=== PATIENT | female | born 1945 | race Caucasian/White ===

== ENCOUNTER 2020-05-21 11:59 | Outpatient (CLI) | payer MEDICARE, BC, SELFPAY ==
--- NOTE | 2020-05-21 12:06 | DI.RAD_ITS ---
EXAM: XR HIP LT COMPLETE AP PELVIS CLINICAL HISTORY: L hip pain TECHNIQUE: COMPARISON: No exams were available for comparison FINDINGS: Three views were obtained. There is mild narrowing of the cartilaginous joint spaces of both hips. There are mild hypertrophic marginal osteophytes of the acetabula and femoral heads bilaterally. Mil d spurring of the greater trochanters of the femurs also noted. Degenerative changes of lower lumbar spine SI joints also noted. IMPRESSION: Mild DJD both hips. No other significant abnormality seen. RADIATION DOSE DELIVERED: Total DLP Total DLP
== END 2020-05-21 12:19 ==
PROVIDERS: Visit Provider Orthopaedic Surgery
DX: M16.0 Bilateral primary osteoarthritis of hip (principal); M70.62 Trochanteric bursitis, left hip
CPT/HCPCS: 99214; 73502

== ENCOUNTER → 2020-06-24 10:58 | Outpatient (BNVA) | payer MEDICARE, BC, SELFPAY | PROVIDERS: Visit Provider Student in an Organized Health Care Education/Training Program | DX: M25.552 Pain in left hip (principal); M70.72 Other bursitis of hip, left hip; M70.62 Trochanteric bursitis, left hip | CPT/HCPCS: 20610; J1040 ==

== ENCOUNTER 2020-11-25 11:25 | Emergency (ER) | payer MEDICARE, BC, SELFPAY ==
[2020-11-25 11:30] VITALS: BP 141/83; PULSE 72; RESP 16; TEMP 36.5; O2SAT 97
--- NOTE | 2020-11-25 12:07 | DI.RAD_ITS ---
Exam(s) XR ANKLE RT COMPLETE EXAM: XR ANKLE RT COMPLETE CLINICAL HISTORY: trauma, lateral ankle pain. TECHNIQUE: 2D digital imaging was performed. COMPARISON: No exams were available for comparison FINDINGS: There are 2 screws across a healed or healing medial malleolus fracture site. There is no overlying soft tissue swelling on either side of the ankle joint. There is no widening of the mortise. Talar dome is intact. Incidentally noted is moderate size inferior calcaneal spur as well as calcification in the plantar fascia a calcification posteriorly at the insertional level of the Achilles. Also no orquidea is dorsal talar beaking at the level of the talonavicular joint which exhibits significant degene rative change. There is no obvious osseous tarsal coalition. IMPRESSION: DATA REPOSITORY: RADIATION DOSE DELIVERED:
--- NOTE | 2020-11-25 12:09 | DI.RAD_ITS ---
Exam(s) XR FOOT RT COMPLETE EXAM: XR FOOT RT COMPLETE CLINICAL HISTORY: trauma, lateral foot pain. TECHNIQUE: 2D digital imaging was performed. COMPARISON: No exams were available for comparison FINDINGS: There is no evidence of acute fracture nor diastasis of the Lisfranc joint. Two screws are seen acro ss a healing medial malleolus fracture site. Fracture line at this level still seen on these images. Mild degenerative changes are seen at the metatarsophalangeal joint of the great toe. No fractures. Degenerative changes in the talonavicular joint are noted with dorsal talar beaking at this level. No obvious osseous tarsal coalition. IMPRESSION: DATA REPOSITORY: RADIATION DOSE DELIVERED:
--- NOTE | 2020-11-25 12:32 | ED.GENADUL_ITS ---
Discharge Plan Disposition Patient Disposition: HOME Condition: Stable Discharge Details Clinical Impression: Ankle injury Primary Care Provider: John Winkler ED Provider: Niyah Acharya Home Meds and New Rx's Prescriptions: Continued simvastatin 10 mg tablet 10 mg PO DAILY RF: 0 omeprazole 40 mg capsule,delayed release(DR/EC) 40 mg PO DAILY RF: 0 Discharge Instructions Instructions: Ankle Sprain (ED), Crutch Instructions (ED) Additional Instructions: Please return immediately to the emergency department if you develop any new or worsening symptoms, if your condition does not improve as expected, or if you become otherwise concerned. It is extremely important that you call soon as possible to make an appointment to be seen in follow-up for this visit by your primary care doctor. Referrals: John Winkler [Primary Care Provider] - Discharge Data Discharge Date/Time-TO BE ENTERED AT DEPARTURE: 11/25/20 12:58 Medical Decision Making Nevaeh Howard is a 75 y/o woman with h/o HLD who presented to the emergency department with right ankle and right lateral foot pain after mechanical fall. On exam there is TTP of the soft tissue of the right lateral ankle and of the right foot. No overlying skin changes or skin wound. ROM of knee, ankle, toes intact. Right foot neurovascularly intact. Concern for likely ankle sprain, possible fx of the ankle/foot. Exam/hx at this time not c/w maisonneuve fx, septic arthritis, vascular pathology, other acute emergent life threatening medical condition. Plan for xrays. xrays negative for acute process. Discussed plan for weight bearing as tolerated with Pt. Offered ankle brace, crutches. Pt declines ankle brace, but accepts crutches. Plans to use one crutch for balance as she is able to bear weight on affect ankle. I had a lengthy discussion with Patient regarding return to emerg ency department precautions, home care, and importance of outpatient follow-up. Pt verbalizes understanding of the plan and is amenable. Patient discharged to home with clear plan for outpatient follow-up. All questions were answered. Disposition decision was made weighing the risks and benefits of hospitalization versus outpatient treatment, the risk for further decompensation, and the patient's wishes. Medical Records Medical records reviewed: Yes I reviewed the patient's medical records. Imaging Data Radiologic Study: Attestation: I personally reviewed and interpreted this imaging study as follows: Radiologist's impression: EXAM: XR ANKLE RT COMPLETE CLINICAL HISTORY: trauma, lateral ankle pain. TECHNIQUE: 2D digital imaging was performed. COMPARISON: No exams were available for comparison FINDINGS: There are 2 screws across a healed or healing medial malleolus fracture site. There is no overlying soft tissue swelling on either side of the ankle joint. There is no widening of the mortise. Talar dome is intact. Incidentally noted is moderate size inferior calcaneal spur as well as calcification in the plantar fascia a calcification posteriorly at the insertional level of the Achilles. Also noted is dorsal talar beaking at the level of the talonavicular joint which exhibits significant degenerative change. There is no obvious osseous tarsal coalition. EXAM: XR FOOT RT COMPLETE CLINICAL HISTORY: trauma, lateral foot pain. TECHNIQUE: 2D digital imaging was performed. COMPARISON: No exams were available for comparison FINDINGS: There is no evidence of acute fracture nor diastasis of the Lisfranc joint. Two screws are seen across a healing medial malleolus fracture site. Fracture line at this level still seen on these images. Mild degenerative changes are seen at the metatarsophalangeal joint of the great toe. No fractures. Degenerative changes in the talonavicular joint are noted with dorsal talar beaking at this level. No obvious osseous tarsal coalition. HPI General Mode of arrival: ambulatory . Date/Time Provider Initiated Documentation: 11/25/20 11:44 . Limitations to Documentation: no limitations . Information obtained by: patient, RN notes reviewed and old records reviewed . HPI Narrative: Nevaeh Howard is a 75 y/o woman with h/o HLD presenting to the emergency department with chief complaint right ankle pain. Pt reports that at approximately 10 am this morning Pt was weeding in her garden when she pulled a particularly embedded weed, and fell backwards. Pt reports that she landed on her buttocks but rolled her right ankle as she was falling. She denies hitting her head, no LOC. Pt states that she was able to walk with a limpafter fall, but has had pain in the lateral right ankle and lateral right foot. She states that she has had prior surgery to the right ankle. She denies any other pain. Denies fever, SOB, cough, vomiting, diarrhea, weakness, numbness. Feels otherwise well and in her usual state of health. No symptoms prior to fall. Related Data Home Medications Medication Instructions Recorded Confirmed simvastatin 10 mg tablet 10 mg PO DAILY 05/21/20 11/25/20 omeprazole 40 mg PO DAILY 11/25/20 11/25/20 Allergies Allergy/AdvReac Type Severity Reaction Status Date / Time No Known Allergies Allergy Verified 11/25/20 11:47 General Stated Complaint: Orthopedic GINA: 4 Review of Systems Narrative: Constitutional: denies fevers Eyes: denies eye pain ENT: denies ear pain, dental pain, sore throat Cardiovascular: denies chest pain Respiratory: denies SOB, cough GI: denies abdominal pain, vomiting, diarrhea : denies flank pain MSK: denies back pain, neck pain, reports right ankle and right foot pain Skin: denies rash Neuro: denies headaches, numbness, weakness [facility] Social History Smoking/Tobacco Use Status: Never Smoking risk assessment performed?: Yes Alcohol Intake: current Alcohol Intake frequency: 0-2 drinks per day Alcohol type: wine Substance use type: does not use Current gender identity: female Do you feel safe at home: Yes Do you feel safe in your relationship?: Yes Exam Narrative Exam Narrative: Constitutional: well and [id number], pleasant, conversing normally HENT: head atraumatic/normocephalic/normal inspection, mucous membranes moist Eyes: conjunctiva normal, sclera normal, pupils 3mm b/l Neck: no stridor, normal ROM, trachea midline Resp: normal work of breathing, speaking in full sentences Cardio: normal rate, normal rhythm Skin: warm, dry, normal color, no rash Neuro: alert, not altered, grossly non-focal, normal tone Ext: no edema, right ankle mildly TTP over lateral soft tissue, no malleolar TTP, mild TTP along lateral aspect of right foot. Sensation of right foot intact. Foot WWP, DP pulses intact. Able to range right ankle normally but with pain. No proximal fibula TTP, no midshaft or proximal tibia TTP. Ranging right knee normally and without pain. Psych: normal mood, normal affect, normal behavior Course Vital Signs Vital signs: Vital Signs Temperature 36.5 C 11/25/20 11:30 Pulse 72 11/25/20 11:30 Respiratory Rate 16 11/25/20 11:30 Blood Pressure 141/83 H 11/25/20 11:30 Pulse Oximetry 97 11/25/20 11:30 Temperature 36.5 C 11/25/20 11:30 Temperature Source Skin 11/25/20 11:30 Pulse 72 11/25/20 11:30 Respiratory Rate 16 11/25/20 11:30 Blood Pressure 141/83 H 11/25/20 11:30 Blood Pressure Position Sitting 11/25/20 11:30 Pulse Oximetry 97 11/25/20 11:30 Oxygen Delivery Method Room Air 11/25/20 11:30 Oxygen Flow Rate 0 11/25/20 11:30 Pain Level 5 11/25/20 11:30 Comment 11/25/20 11:30
[2020-11-25 13:01] VITALS: BP 141/83; PULSE 72; RESP 16; TEMP 36.5; O2SAT 97
== END 2020-11-25 12:58 | disposition home or self-care (01) ==
PROVIDERS: Emergency Provider Student in an Organized Health Care Education/Training Program; PCP Physician Assistant
DX: S99.911A Unspecified injury of right ankle, initial encounter (principal); W19.XXXA Unspecified fall, initial encounter; X50.9XXA Other and unspecified overexertion or strenuous movements or postures, initial encounter
CPT/HCPCS: 99284; 73610; 73630; 99283

== ENCOUNTER 2020-12-19 19:11 | Outpatient (REF) | payer MEDICARE, BC, SELFPAY ==
[2020-12-19 20:10] LABS: ALT 27 U/L (14-59); AST 19 U/L (15-37); Albumin 3.7 g/dL (3.4-5.0); Alkaline Phosphatase 95 U/L (46-116); Anion Gap 11.5 mmol/L (3-11); BUN 27 mg/dL (7-18); CO2 25.5 mmol/L (21.0-32.0); CREATININE 0.8 mg/dL (0.55-1.02); Calcium 8.7 mg/dL (8.5-10.1); Calculated LDL 127 mg/dL (<100); Chloride 108 mmol/L (98-107); Cholesterol 196 mg/dL (<200); Glucose 102 mg/dL (74-106); HDL Cholesterol 51 mg/dL (40-60); Potassium 4.5 mmol/L (3.5-5.1); Sodium 145 mmol/L (136-145); Total Protein 6.9 g/dL (6.4-8.2); Triglyceride 92 mg/dL (<150)
== END 2020-12-19 19:12 | disposition home or self-care (01) ==
LOC: NCHCN 19:11
PROVIDERS: PCP Physician Assistant; Visit Provider Physician Assistant
DX: E78.5 Hyperlipidemia, unspecified (principal)
CPT/HCPCS: 80053; 80061

== ENCOUNTER 2021-04-17 15:54 | Emergency (ER) | payer MEDICARE, BC, SELFPAY ==
[2021-04-17 16:28] VITALS: BP 170/84; PULSE 73; RESP 16; TEMP 36.8; O2SAT 96
--- NOTE | 2021-04-17 17:08 | W.ED.GENAD ---
Discharge Plan Disposition Patient Disposition: HOME Condition: Stable Discharge Details Clinical Impression: Contusion of face, Abrasion of face, Contusion of left hip, Abrasion of left knee, Closed head injury with brief loss of consciousness Primary Care Provider: John Winkler ED Provider: Tiara Mancilla Home Meds and New Rx's Prescriptions: Continued simvastatin 10 mg tablet 10 mg PO DAILY RF: 0 omeprazole 40 mg capsule,delayed release(DR/EC) 40 mg PO DAILY RF: 0 montelukast 10 mg tablet 10 mg PO DAILY RF: 0 estradiol [Yuvafem] 10 mcg tablet 10 mcg VAGINAL RF: 0 Discharge Instructions Instructions: Head Injury (ED), Contusion in Adults (ED), Abrasion (ED) Additional Instructions: Drink plenty of fluids and get plenty of rest. Take Tylenol as needed and directed for pain. Keep wound clean and dry. Cover wound with bandage if risk of contamination. Otherwise you can keep the wound open to air if resting at home to allow edges to dry and heal. Follow-up with your primary care doctor in 1 week. Return to the emergency department with any worsening or new concerning symptoms such as persistent headaches, vomiting, neck pain or any other concerns. Discharge Data Discharge Date/Time-TO BE ENTERED AT DEPARTURE: 04/17/21 19:57 Discharge Physician: Tiara Mancilla Medical Decision Making 76-year-old female presents with right facial injury, left hip, left knee and right hand pain after mechanical fall prior to arrival. Denies any chest pain, dizziness or shortness of breath. Questionable LOC. She has right-sided facial abrasions, ecchymosis and edema but no obvious deformity or step-off. No midline spinal tenderness. She denies any current left hip or knee pain but had tenderness to palpation to her left knee. Considering potential distracting injuries, will obtain a CT head, facial bones, cervical spine, left hip and knee x-rays. Right hand appears normal to inspection without evidence of trauma with normal range of motion. She declines any medication for pain. Imaging reviewed and negative for acute fracture. Pt given a tetanus. Pt advised on proper wound care. She was given head injury instructions and return precautions prior to discharge. Advised to f/u with the pcp for re-evaluation as needed. Medical Records Medical records reviewed: Yes I reviewed the patient's medical records. Imaging Data Radiologic Study: Radiologist's impression: CT Head Without Contrast Exam date and time: 04/17/2021 5:29 PM Age: 76 years old Clinical indication: Injury or trauma; Fall; Blunt trauma (contusions or hematomas); Other: Hit R face on ground, R/O orbital/facial FX; Prior surgery TECHNIQUE: Imaging protocol: Computed tomography of the head without contrast. COMPARISON: No relevant prior studies available. FINDINGS: Brain: The ventricles and cortical sulci are normal in position and size for age. No hydrocephalus. No intracranial hemorrhage. No mass or midline shift. No extra-axial collections. Normal wallace-white differentiation. No large acute territorial infarct. No cerebral edema. Cerebral ventricles: See Brain finding. Paranasal sinuses: The visualized paranasal sinuses are well-aerated. There are no air fluid levels to suggest acute sinusitis. Mastoid air cells: The tympanomastoid air cells are normally aerated as visualized. Orbital cavity: [place] lenses are absent. The orbits are otherwise unremarkable as visualized. Vasculature: Intracranial arterial calcification is present. Bones/joints: No acute fracture. No focal osseous lesions. Soft tissues: RIGHT lateral periorbital soft tissue swelling. IMPRESSION: 1. No acute intracranial findings. 2. RIGHT lateral periorbital soft tissue swelling. CT Maxillofacial Without Contrast Exam date and time: 04/17/2021 5:29 PM Age: 76 years old Clinical indication: Injury or trauma; Fall; Blunt trauma (contusions or hematomas); Other: Hit R face on ground, R/O orbital/facial FX; Prior surgery TECHNIQUE: Imaging protocol: Computed tomography images of the face without contrast. COMPARISON: No relevant prior studies available. FINDINGS: Orbital cavity: [place] lenses are absent. The orbits are otherwise unremarkable as visualized. Bones/joints: No acute fracture. No dislocation. Severe bilateral, RIGHT greater than LEFT, temporomandibular joint osteoarthritis with large anterior osteophytes. Mucosal thickening in the maxillary sinuses bilaterally with involvement but not occlusion of the ostiomeatal units. No air-fluid levels. Paranasal sinuses: See Bones/joints finding. Soft tissues: RIGHT lateral periorbital soft tissue swelling. Brain: Calcification of the palatine prior infection or inflammation. IMPRESSION: 1. RIGHT lateral periorbital soft tissue swelling. 2. No acute fracture. 3. Severe osteoarthritis of the TMJs. CT Cervical Spine Without Contrast Exam date and time: 04/17/2021 5:29 PM Age: 76 years old Clinical indication: Injury or trauma; Fall; Blunt trauma (contusions or hematomas); Other: Hit R face on ground, R/O orbital/facial FX; Prior surgery TECHNIQUE: Imaging protocol: Computed tomography images of the cervical spine without contrast. COMPARISON: No relevant prior studies available. FINDINGS: Bones/joints: Reversal of the cervical lordosis with mild anterolisthesis at C4-C5. No acute fracture or traumatic subluxation. No focal osseous lesion. Vertebrae are normal in height. Discs/Spinal canal/Neural foramina: Multilevel degenerative changes of the cervical spine. This involves facet joint hypertrophic changes more pronounced on the RIGHT resulting in bilateral foraminal stenosis at several levels. There also are disc-osteophyte complexes and disc space narrowing at C5-C6 and C6-C7. There is mild central canal stenosis at C5-C6 C7. Oropharynx: Calcification of the [place] tonsil consistent with prior infection or inflammation. Thyroid: Thyroid gland unremarkable as visualized. Lungs: Lung apices demonstrate fibrotic changes bilaterally. Soft tissues: The soft tissues are unremarkable. IMPRESSION: 1. No acute findings. 2. Degenerative changes of the cervical spine. XR Left Knee Exam date and time: 04/17/2021 5:29 PM Age: 76 years old Clinical indication: Injury or trauma; Fall; Blunt trauma; Knee; Left TECHNIQUE: Imaging protocol: XR Left knee. Views: 3 views. COMPARISON: No relevant prior studies available. FINDINGS: Bones/joints: Osseous mineralization is normal. There are no inflammatory osseous erosive changes. The joint spaces are maintained without degenerative changes. There is no evidence of a joint effusion. There are no acute displaced fractures or subluxations. There is a small superior patellar enthesophyte. Soft tissues: Normal. Vasculature: There is mild atherosclerotic calcification. IMPRESSION: No acute displaced fractures or subluxations. XR Left Hip Exam date and time: 04/17/2021 5:29 PM Age: 76 years old Clinical indication: Injury or trauma; Fall; Blunt trauma (contusions or hematomas); Left; Hip TECHNIQUE: Imaging protocol: XR Left hip. Views: 2 or 3 views hip with pelvis when performed. COMPARISON: CR XR HIP LT COMPLETE AP PELVIS 05/21/2020 11:59 AM FINDINGS: Bones/joints: Osseous mineralization is normal. There are no inflammatory osseous erosive changes. Both femoral heads demonstrate normal contour and density. There is mild narrowing of the left hip with mild spurring of the left acetabulum consistent with mild degenerative joint disease. Both sacroiliac joints are patent and symmetric without evidence for degenerative change. There are no acute displaced fractures or subluxations. No focal osseous lesions are identified. Soft tissues: Unremarkable. IMPRESSION: 1. No acute fractures or subluxations. 2. Mild degenerative change of the left hip. HPI General Mode of arrival: ambulatory. Date/Time Provider Initiated Documentation: 04/17/21 16:11. Limitations to Documentation: no limitations. Information obtained by: patient. HPI Narrative: Patient is a 76-year-old female who presents with right-sided facial injury after a mechanical fall at home prior to arrival. Patient states she went out for a walk when she hit the lip with a driveway and fell forward striking her face on the hard ground. She states there is a period of time she does not recall but denies any significant headache or vomiting. She is having pain in the right side of her face. She states she initially had severe pain in her left hip and knee but states is now resolved. She is unsure of her tetanus status. She denies any neck pain, chest pain, abdominal pain, back pain, arm pain or right leg pain. She took Tylenol earlier today and is declining any additional medication for pain. Related Data Home Medications Medication Instructions Recorded Confirmed simvastatin 10 mg tablet 10 mg PO DAILY 05/21/20 04/17/21 omeprazole 40 mg PO DAILY 11/25/20 04/17/21 estradiol [Yuvafem] 10 mcg VAGINAL 04/17/21 montelukast 10 mg PO DAILY 04/17/21 04/17/21 Allergies Allergy/AdvReac Type Severity Reaction Status Date / Time No Known Allergies Allergy Verified 04/17/21 16:35 General Stated Complaint: Trauma GINA: 3 Review of Systems All systems reviewed & are unremarkable except as noted in HPI and below Constitutional Constitutional: Reports as per HPI, Denies chills and Denies fever(s) Eyes Eyes: Denies blurry vision ENT Ears, Nose, Mouth, and Throat: Denies dizziness, Denies sore throat and Denies throat swelling Cardiovascular Cardiovascular: Denies chest pain and Denies dyspnea Respiratory Respiratory: Denies cough and Denies dyspnea Gastrointestinal Gastrointestinal: Denies abdominal pain, Denies diarrhea and Denies vomiting Genitourinary Genitourinary: Denies hematuria and Denies dysuria Musculoskeletal Musculoskeletal: Denies back pain and Denies numbness Comments: R facial, L hip and knee pain, R hand pain Integumentary/Breasts Skin/Breast: Denies lesions and Denies rash Neurologic Neurologic: Denies dizziness, Denies localized weakness and Denies numbness Allergic/Immunologic Allergic/Immunologic: Denies throat swelling PFSH Medical History (Updated 04/17/21 @ 19:38 by Tiara Mancilla DO) Hx of hyperlipidemia Surgical History (Updated 04/17/21 @ 18:17 by Tiara Mancilla DO) History of ankle surgery History of hysterectomy Social History Smoking/Tobacco Use Status: Never Smoking risk assessment performed?: Yes Alcohol Intake: current Alcohol Intake frequency: 0-2 drinks per day Alcohol type: wine Substance use type: does not use Current gender identity: female Do you feel safe at home: Yes Do you feel safe in your relationship?: Yes Exam Const General: cooperative, healthy appearing and no acute distress HENMT Head: normal to inspection Ears: hearing grossly normal bilaterally and external ears normal General nose exam: external nose normal Face images: 1. Tenderness, edema, ecchymosis, abrasions. Mouth: oral mucosae normal Teeth and gingiva: dentures Eyes General: appearance normal, both eyes and all related structures Pupils: PERRL EOM: EOM intact bilaterally Neck Neck: normal visual inspection, no anterior neck swelling and No submandibular swelling Lymphatic: no lymphadenopathy noted Chest Chest: normal inspection of the chest and no tenderness Resp Effort & Inspection: normal respiratory effort and able to speak in complete sentences Auscultation: clear to auscultation bilaterally Cardio Rate: regular rate Rhythm: regular rhythm GI Inspection: normal to inspection Palpation: soft, not firm, not rigid and nontender Auscultation: normal bowel sounds Back/Spine/Pelvis Cervical Spine: No cervical spinal tenderness Thoracic/Lumbar Spine: thoracic and lumbar spine normal to inspection, No thoracic spinal tenderness and No lumbar spinal tenderness Pelvis: no pain with anterior-posterior compression Skin General skin exam: no rashes or lesions noted Neuro General: patient alert, patient awake and patient oriented x3 Cognition: normal cognition Speech: speech normal Motor: muscle tone normal throughout Sensory Exam: no sensory deficits noted Extrem General: full ROM, capillary refill normal, no calf tenderness bilaterally and no edema Knee images: 1. 1 x 1 cm superficial abrasion 2. Tenderness, edema. Other: Bilateral DP/PT pulses intact. No significant pain in left hip with range of motion. No pain in bilateral upper extremities or right lower extremity without range of motion. Right hand normal to inspection without edema, ecchymosis. Distal pulses intact. Psych Appearance: grossly normal Mental Status: mental status grossly normal Speech and Movement: speech and movement normal Affect: normal affect Course Vital Signs Vital signs: Vital Signs Temperature 98.2 F 04/17/21 16:28 Pulse 73 04/17/21 16:28 Respiratory Rate 16 04/17/21 16:28 Blood Pressure 170/84 H 04/17/21 16:28 Pulse Oximetry 96 04/17/21 16:28 Temperature 98.2 F 04/17/21 16:28 Temperature Source Skin 04/17/21 16:28 Pulse 73 04/17/21 16:28 Respiratory Rate 16 04/17/21 16:28 Respiratory Effort Non-Labored 04/17/21 16:28 Blood Pressure 170/84 H 04/17/21 16:28 Blood Pressure Position Sitting 04/17/21 16:28 Pulse Oximetry 96 04/17/21 16:28 Oxygen Delivery Method Room Air 04/17/21 16:28 Oxygen Flow Rate 0 04/17/21 16:28 Pain Level 7 04/17/21 16:28 PAWSS Have you Been Recently Intoxicated or Drunk Within the Last 30 days?: No Have you Ever Experienced Previous Episodes of Alcohol Withdrawal?: No Have you ever Experienced Withdrawal Seizures?: No Have you ever Experienced Delirium Tremens(DT)s?: No Have you ever undergone Alcohol Rehabilitation Treatment (i.e, inpt ot outpatient treatment programs)?: No Have you ever Experienced Blackouts?: No Have you ever Combined Alcohol with other Downers within the last 90 days?: No Have you ever Combined Alcohol with any other Substance of Abuse during the last 90 days?: No Result: 0
--- NOTE | 2021-04-17 17:15 | DI.CT_ITS ---
Exam(s) CT HEAD CERV SPINE FACIAL WO EXAM: CT HEAD CERV SPINE FACIAL WO CLINICAL HISTORY: hit R face on ground, r/o orbital/facial fx. TECHNIQUE: Imaging Protocol: Axial computed tomography images with coronal and sagittal reformatted images were created and reviewed COMPARISON: No exams were available for comparison FINDINGS: CT Head: Ventricles and Extra axial spaces: Normal in size and morphology for the patient's age. Hemorrhage: None. Cerebral parenchyma: Normal. Midline shift: None. Brainstem/Cerebellum: Normal. Calvarium: Normal. Visualized Paranasal sinuses/Mastoids: Minimal mucosal thickening maxillary sinuses. Soft Tissues: Swelling around lateral right orbit. CT Face: Facial Bones: No definite fracture is noted in facial bones. Sinuses and Mastoids: Minimal mucosal thickening maxillary sinuses. No air-fluid levels. Globes, extraocular muscles, optic nerves and retrobulbar fat: Normal. Mandible and bilateral temporomandibular joints: Degenerative changes temporomandibular joints. Soft tissues: Swelling around lateral right orbit. CT Cervical Spine: Bones: No acute fracture or subluxation. Degenerative changes greatest at C5-6 and C6-7. Reversal of the normal cervical lordosis, consistent with degenerative changes. Soft Tissues: Unremarkable. Lung Apices: Clear. IMPRESSION: 1. No acute intracranial process. 2. No acute fracture or subluxation in the cervical spine. 3. No acute facial fracture. RADIATION DOSE DELIVERED: 1,866.72mGy.cm Total DLP DATA REPOSITORY: All CT scans at this facility are submitted to the National Radiology Data Registry (NRDR) Dose Index Registry (DIR) with the [employer] (ACR). RADIATION OPTIMIZATION: All CT scans at this facility use at least one of these dose optimization te chniques: automated exposure control; mA and/or kV adjustment per patient size (includes targeted exa ms where dose is matched to clinical indication); or iterative reconstruction.
--- NOTE | 2021-04-17 17:15 | DI.RAD_ITS ---
Exam(s) XR HIP LT COMPLETE AP PELVIS EXAM: XR HIP LT COMPLETE AP PELVIS INDICATION: fall onto L side, r/o fx. COMPARISON: CR XR HIP LT COMPLETE AP PELVIS from 05/21/2020 TECHNIQUE: 2D digital imaging was performed. FINDINGS: No fracture or dislocation is seen. The SI joints and pubic symphysis appear intact. There is bilat eral acetabular spurring. There is spurring at the margin of the left femoral head. The joint space s are well maintained. IMPRESSION: Mild degenerative changes both hips. No acute abnormality. DATA REPOSITORY: RADIATION DOSE DELIVERED:
--- NOTE | 2021-04-17 17:15 | DI.RAD_ITS ---
Exam(s) XR KNEE LT 3V AP,LAT,JALIL EXAM: XR KNEE LT 3V AP,LAT,JALIL CLINICAL HISTORY: fall onto L knee, r/o fracture. TECHNIQUE: 2D digital imaging was performed. COMPARISON: No exams were available for comparison FINDINGS: BONES: No acute fracture is present. No bony destructive lesion is seen. Enthesophyte superior charles e patella JOINTS: Joint spaces well maintained. The knee is normally aligned. No joint effusion is seen. SOFT TISSUE: Arterial calcifications IMPRESSION: No acute abnormality. DATA REPOSITORY: RADIATION DOSE DELIVERED:
--- NOTE | 2021-04-17 18:33 | DI.VRAD_ITS ---
PROCEDURE INFORMATION: Exam: XR Left Hip Exam date and time: 04/17/2021 5:29 PM Age: 76 years old Clinical indication: Injury or trauma; Fall; Blunt trauma (contusions or hematomas); Left; Hip TECHNIQUE: Imaging protocol: XR Left hip. Views: 2 or 3 views hip with pelvis when performed. COMPARISON: CR XR HIP LT COMPLETE AP PELVIS 05/21/2020 11:59 AM FINDINGS: Bones/joints: Osseous mineralization is normal. There are no inflammatory osseous erosive changes. Both femoral heads demonstrate normal contour and density. There is mild narrowing of the left hip with mild spurring of the left acetabulum consistent with mild degenerative joint disease. Both sacroiliac joints are patent and symmetric without evidence for degenerative change. There are no acute displaced fractures or subluxations. No focal osseous lesions are identified. Soft tissues: Unremarkable. IMPRESSION: 1. No acute fractures or subluxations. 2. Mild degenerative change of the left hip. Dictated and Authenticated by: Danish Peters MD. Ordering:HIRO Menjivar MD
--- NOTE | 2021-04-17 18:35 | DI.VRAD_ITS ---
PROCEDURE INFORMATION: Exam: XR Left Knee Exam date and time: 04/17/2021 5:29 PM Age: 76 years old Clinical indication: Injury or trauma; Fall; Blunt trauma; Knee; Left TECHNIQUE: Imaging protocol: XR Left knee. Views: 3 views. COMPARISON: No relevant prior studies available. FINDINGS: Bones/joints: Osseous mineralization is normal. There are no inflammatory osseous erosive changes. The joint spaces are maintained without degenerative changes. There is no evidence of a joint effusion. There are no acute displaced fractures or subluxations. There is a small superior patellar enthesophyte. Soft tissues: Normal. Vasculature: There is mild atherosclerotic calcification. IMPRESSION: No acute displaced fractures or subluxations. Dictated and Authenticated by: Danish Peters MD. Ordering:HIRO Menjivar MD
--- NOTE | 2021-04-17 18:52 | DI.VRAD_ITS ---
PROCEDURE INFORMATION: Exam: CT Head Without Contrast Exam date and time: 04/17/2021 5:29 PM Age: 76 years old Clinical indication: Injury or trauma; Fall; Blunt trauma (contusions or hematomas); Other: Hit R face on ground, R/O orbital/facial FX; Prior surgery TECHNIQUE: Imaging protocol: Computed tomography of the head without contrast. COMPARISON: No relevant prior studies available. FINDINGS: Brain: The ventricles and cortical sulci are normal in position and size for age. No hydrocephalus. No intracranial hemorrhage. No mass or midline shift. No extra-axial collections. Normal wallace-white differentiation. No large acute territorial infarct. No cerebral edema. Cerebral ventricles: See Brain finding. Paranasal sinuses: The visualized paranasal sinuses are well-aerated. There are no air fluid levels to suggest acute sinusitis. Mastoid air cells: The tympanomastoid air cells are normally aerated as visualized. Orbital cavity: The [place] point lenses are absent. The orbits are otherwise unremarkable as visualized. Vasculature: Intracranial arterial calcification is present. Bones/joints: No acute fracture. No focal osseous lesions. Soft tissues: RIGHT lateral periorbital soft tissue swelling. IMPRESSION: 1. No acute intracranial findings. 2. RIGHT lateral periorbital soft tissue swelling. PROCEDURE INFORMATION: Exam: CT Maxillofacial Without Contrast Exam date and time: 04/17/2021 5:29 PM Age: 76 years old Clinical indication: Injury or trauma; Fall; Blunt trauma (contusions or hematomas); Other: Hit R face on ground, R/O orbital/facial FX; Prior surgery TECHNIQUE: Imaging protocol: Computed tomography images of the face without contrast. COMPARISON: No relevant prior studies available. FINDINGS: Orbital cavity: The [place] point lenses are absent. The orbits are otherwise unremarkable as visualized. Bones/joints: No acute fracture. No dislocation. Severe bilateral, RIGHT greater than LEFT, temporomandibular joint osteoarthritis with large anterior osteophytes. Mucosal thickening in the maxillary sinuses bilaterally with involvement but not occlusion of the ostiomeatal units. No air-fluid levels. Paranasal sinuses: See Bones/joints finding. Soft tissues: RIGHT lateral periorbital soft tissue swelling. Brain: Calcification of the palatine prior infection or inflammation. IMPRESSION: 1. RIGHT lateral periorbital soft tissue swelling. 2. No acute fracture. 3. Severe osteoarthritis of the TMJs. PROCEDURE INFORMATION: Exam: CT Cervical Spine Without Contrast Exam date and time: 04/17/2021 5:29 PM Age: 76 years old Clinical indication: Injury or trauma; Fall; Blunt trauma (contusions or hematomas); Other: Hit R face on ground, R/O orbital/facial FX; Prior surgery TECHNIQUE: Imaging protocol: Computed tomography images of the cervical spine without contrast. COMPARISON: No relevant prior studies available. FINDINGS: Bones/joints: Reversal of the cervical lordosis with mild anterolisthesis at C4-C5. No acute fracture or traumatic subluxation. No focal osseous lesion. Vertebrae are normal in height. Discs/Spinal canal/Neural foramina: Multilevel degenerative changes of the cervical spine. This involves facet joint hypertrophic changes more pronounced on the RIGHT resulting in bilateral foraminal stenosis at several levels. There also are disc-osteophyte complexes and disc space narrowing at C5-C6 and C6-C7. There is mild central canal stenosis at C5-C6 C7. Oropharynx: Calcification of the palatine tonsil consistent with prior infection or inflammation. Thyroid: Thyroid gland unremarkable as visualized. Lungs: Lung apices demonstrate fibrotic changes bilaterally. Soft tissues: The soft tissues are unremarkable. IMPRESSION: 1. No acute findings. 2. Degenerative changes of the cervical spine. Dictated and Authenticated by: Tonia Millard MD. Ordering:HIRO Menjivar MD
[2021-04-17 19:48] VITALS: BP 165/74; PULSE 84; RESP 18; TEMP 36.8; O2SAT 96
== END 2021-04-17 19:57 | disposition home or self-care (01) ==
PROVIDERS: Emergency Provider Physician Assistant; PCP Physician Assistant
DX: S00.81XA Abrasion of other part of head, initial encounter (principal); S80.212A Abrasion, left knee, initial encounter; S70.02XA Contusion of left hip, initial encounter; S06.9X9A Unspecified intracranial injury with loss of consciousness of unspecified duration, initial encounter; W01.198A Fall on same level from slipping, tripping and stumbling with subsequent striking against other object, initial encounter
CPT/HCPCS: 73562; 90471; 99284; 70450; 70486; 72125; 73502

== ENCOUNTER 2021-09-01 02:10 | Outpatient (CLI) | payer MEDICARE, BC, SELFPAY ==
--- NOTE | 2021-09-01 12:00 | DI.MAMMO_ITS ---
Exam(s) MAMMO SCREENING EXAM: MAMMO SCREENING CLINICAL HISTORY: SCREENING FOR BREAST CANCER Z12.39 TECHNIQUE: Bilateral full field digital CC and MLO mammographic images were obtained with 3D tomosyn thesis and utilizing computer aided detection (CAD). COMPARISON: None. FINDINGS: Masses/Architectural Distortion: None seen. Microcalcifications: No suspicious pleomorphic-type are seen. Skin Thickening/Nipple Retraction: None. IMPRESSION: 1. No significant interval change with no specific features of malignancy noted. 2. Unless there is more urgent need, screening mammography is recommended, as per [employer] guidelines. BI-RADS Category 1 - Negative Breast Density - Category B - Scattered areas of fibroglandular density Breast density category C or D implies that the patient has dense breast tissue. Dense breast tissue is very common and is not abnormal but dense breast tissue can make it harder to find cancer on a ma mmogram. Also, dense breast tissue may increase their breast cancer risk. This information about the result of the mammogram report was provided to the patient to raise their awareness. Use this report when you speak with the patient about their risks for breast cancer, which includes their family hist ory. At that time, you may recommend for more screening tests (Ultrasound or MRI) as they might be us eful based on their risk. A negative radiographic report should not delay biopsy if a dominant or clinically suspicious mass is present. Up to ten percent of cancers are not identified on mammography. A negative report may reinforce clinical impression. Adenosis and dense breasts may obscure an underlying neoplasm. False positive reports average 6 to 10%. Patient will receive a letter notifying them of these results.
== END 2021-09-01 02:30 ==
PROVIDERS: PCP Physician Assistant; Visit Provider Physician Assistant
DX: Z12.31 Encounter for screening mammogram for malignant neoplasm of breast (principal)
CPT/HCPCS: 77063; 77067

== ENCOUNTER 2022-07-08 18:13 | Outpatient (REF) | payer MEDICARE, BC, SELFPAY ==
[2022-07-10 11:30] LABS: COVID-19 RT-PCR UVMMC Result Negative (Negative)
== END 2022-07-08 18:14 | disposition home or self-care (01) ==
LOC: LBN 18:13
PROVIDERS: PCP Physician Assistant; Visit Provider Physician Assistant Medical
DX: Z20.822 Contact with and (suspected) exposure to COVID-19 (principal); R05.8 Other specified cough
CPT/HCPCS: U0003

== ENCOUNTER 2022-07-10 07:14 | Emergency (ER) | payer MEDICARE, BC, SELFPAY ==
[2022-07-10 07:27] VITALS: BP 122/87; PULSE 94; RESP 18; TEMP 36.7; O2SAT 95
--- NOTE | 2022-07-10 08:03 | ED.GENADUL_ITS ---
Discharge Plan Disposition Patient Disposition: Home Condition: Stable Discharge Details Clinical Impression: URI (upper respiratory infection) Primary Care Provider: John Winkler ED Provider: Hank Acharya Home Meds and New Rx's Prescriptions: Continued simvastatin 10 mg tablet 10 mg PO DAILY omeprazole 40 mg capsule,delayed release(DR/EC) 40 mg PO DAILY montelukast 10 mg tablet 10 mg PO DAILY PRN Discharge Instructions Additional Instructions: Please drink plenty of fluids and allow for plenty of rest. Please contact your primary care physician to arrange follow-up. Return to the ER immediately for any worsening or new concerning symptoms. Referrals: John Winkler [Primary Care Provider] - Medical Decision Making 77-year-old female with history of asthma here with cough and congestion over the past 6 days. sick with cough as well. Patient was seen at [facility] 2 days ago and thought to have viral illness. She has been using albuterol inhaler intermittently. Patient saturating well in no respiratory distress. No signs of focal bacterial infection on exam. Suspect viral bronchitis. COVID and influenza negative. I recommended increased oral fluid intake and supportive care. Usual customary discharge instructions reviewed with the patient. Lab Data Lab results reviewed: Yes I reviewed the patient's lab results. Labs: Laboratory Tests Range/Units 07/10/22 07:29 COVID-19 Source Nasopharynx SARS-CoV-2 (PCR) (Negative) Negative Influenza Type A (PCR) (Negative) Negative Influenza Type B (PCR) (Negative) Negative RSV (PCR) (Negative) Negative HPI General Mode of arrival: ambulatory . Date/Time Provider Initiated Documentation: 07/10/22 07:30 . Limitations to Documentation: no limitations . Information obtained by: patient . HPI Narrative: 77-year-old female here with chief complaint of cough. Patient notes cough over the past 6 days. Cough is intermittently productive of clear phlegm. She had associated fever earlier this week but has resolved. Patient notes she went to [facility] 2 days ago and was given albuterol inhaler for asthma/bronchitis. Her is sick with cough and loose stool over the past few days. Patient notes she took multiple COVID tests at home that were negative. Patient states she feels generally fatigued. Related Data Home Medications Medication Instructions Recorded Confirmed simvastatin 10 mg tablet 10 mg PO DAILY 05/21/20 07/10/22 omeprazole 40 mg capsule,delayed 40 mg PO DAILY 11/25/20 04/17/21 release montelukast 10 mg tablet 10 mg PO DAILY PRN 04/17/21 07/10/22 Allergies Allergy/AdvReac Type Severity Reaction Status Date / Time No Known Allergies Allergy Verified 04/17/21 16:35 General Stated Complaint: RespSymp GINA: 4 Review of Systems All systems reviewed & are unremarkable except as noted in HPI and below Constitutional Constitutional: Reports as per HPI Cardiovascular Cardiovascular: Denies chest pain Respiratory Respiratory: Reports as per HPI and Reports cough PFSH All Active Problems Contusion of face (Acute) Abrasion of face (Acute) Contusion of left hip (Acute) Abrasion of left knee (Acute) Closed head injury with brief loss of consciousness (Acute) URI (upper respiratory infection) (Acute) Ankle injury (Acute) Trochanteric bursitis, left hip (Acute) Medical History Hx of hyperlipidemia Surgical History History of ankle surgery History of hysterectomy Social History Smoking/Tobacco Use Status: Never Smoking risk assessment performed?: Yes Alcohol Intake: current Alcohol Intake frequency: 0-2 drinks per day Alcohol type: wine Substance use type: does not use Do you feel safe at home: Yes Do you feel safe in your relationship?: Yes Exam Const General: cooperative and no acute distress HENMT Mouth: moist mucous membranes Throat: posterior oropharynx normal Eyes Conjunctivae: normal conjunctivae Sclera: normal sclerae Neck Neck: trachea midline Resp Effort & Inspection: normal respiratory effort, cough, not labored, no respiratory distress and not tachypneic Auscultation: rhonchi lower bilaterally and no wheezes Cardio Rate: regular rate and not tachycardic Rhythm: regular rhythm Neuro General: patient alert, patient awake and tone normal Course Vital Signs Vital signs: Vital Signs Temperature 36.7 C 07/10/22 07:27 Pulse 94 H 07/10/22 07:27 Respiratory Rate 18 07/10/22 07:27 Blood Pressure 122/87 07/10/22 07:27 Pulse Oximetry 95 07/10/22 07:27 Temperature 36.7 C 07/10/22 07:27 Temperature Source Skin 07/10/22 07:27 Pulse 94 H 07/10/22 07:27 Respiratory Rate 18 07/10/22 07:27 Respiratory Effort 07/10/22 07:46 Respiratory Depth Normal 07/10/22 07:46 Blood Pressure 122/87 07/10/22 07:27 Blood Pressure Position Sitting 07/10/22 07:27 Pulse Oximetry 95 07/10/22 07:27 Oxygen Delivery Method Room Air 07/10/22 07:27 Oxygen Flow Rate 0 07/10/22 07:27 Pain Level 0 07/10/22 07:27
[2022-07-10 08:35] LABS: COVID-19 PCR Negative (Negative); Influenza A PCR Negative (Negative); Influenza B PCR Negative (Negative); RSV PCR Negative (Negative)
[2022-07-10 08:36] LABS: Source Nasopharynx
== END 2022-07-10 08:56 | disposition home or self-care (01) ==
PROVIDERS: Emergency Provider Student in an Organized Health Care Education/Training Program; PCP Physician Assistant
DX: J06.9 Acute upper respiratory infection, unspecified (principal); Z20.822 Contact with and (suspected) exposure to COVID-19
CPT/HCPCS: 87637; 99282

== ENCOUNTER 2023-02-17 19:55 | Outpatient (REF) | payer MEDICARE, BC, SELFPAY ==
[2023-02-17 17:22] LABS: ALT 27 U/L (14-59); AST 19 U/L (15-37); Albumin 3.6 g/dL (3.4-5.0); Alkaline Phosphatase 94 U/L (46-116); Anion Gap 8.1 mmol/L (3-11); BUN 21 mg/dL (7-18); Bilirubin, Total 0.9 mg/dL (0.2-1.0); CO2 26.9 mmol/L (21.0-32.0); CREATININE 0.8 mg/dL (0.55-1.02); Calculated LDL 111 mg/dL (<100); Chloride 104 mmol/L (98-107); Cholesterol 193 mg/dL (<200); Glucose 105 mg/dL (74-106); HDL Cholesterol 50 mg/dL (40-60); Potassium 4.7 mmol/L (3.5-5.1); Sodium 139 mmol/L (136-145); Total Protein 6.9 g/dL (6.4-8.2); Triglyceride 163 mg/dL (<150)
== END 2023-02-17 19:56 | disposition home or self-care (01) ==
LOC: NCHCN 19:55
PROVIDERS: PCP Physician Assistant; Visit Provider Physician Assistant
DX: E78.5 Hyperlipidemia, unspecified (principal)
CPT/HCPCS: 80053; 80061

== ENCOUNTER → 2023-11-25 00:22 | Outpatient (CLI) | payer MEDICARE, BC, SELFPAY ==
--- NOTE | 2023-11-25 | DI.DEXA_ITS ---
Exam(s) XR DEXA BONE DENSITY W/WO RORY EXAM: XR DEXA BONE DENSITY W/WO RORY CLINICAL HISTORY: POSTMENOPAUSAL SCREENING, Z78.0, ASYMPTOMATIC MENOPAUSAL STATE, OSTEOPENIA TECHNIQUE: COMPARISON: No exams were available for comparison FINDINGS: Lateral Spine Image: Unremarkable. No compression deformities identified. Left hip: Total T-Score: -1.6 Total Z-Score: 0.5 T- and Z-scores: Findings are consistent with osteopenia. There is no evidence of osteoporosis. Lumbar Spine: Total T-Score: -0.4 Total Z-Score: 2.3 T- and Z-scores: Within normal limits. There is no evidence of osteoporosis. left forearm: Total T-score:-3.1 Total Z-score:-0.1 T and Z-scores: Findings are consistent with osteoporosis. IMPRESSION: There is osteoporosis seen in the left forearm.
== END ==
PROVIDERS: PCP Physician Assistant; Visit Provider Physician Assistant
DX: Z78.0 Asymptomatic menopausal state (principal); M81.6 Localized osteoporosis [Lequesne]
CPT/HCPCS: 77080

== ENCOUNTER → 2024-03-02 08:06 | Outpatient (BNVA) | payer MEDICARE, BC, SELFPAY | PROVIDERS: PCP Physician Assistant; Referring Provider Physician Assistant; Visit Provider Student in an Organized Health Care Education/Training Program | DX: M65.4 Radial styloid tenosynovitis [de Quervain] (principal) | CPT/HCPCS: 20550; 99213; J1010 ==

== ENCOUNTER 2024-03-29 13:30 | Outpatient (REF) | payer MEDICARE, BC, SELFPAY ==
--- OUTSIDE RECORDS SUMMARY | 2024-03-29 13:32 | XMS_ITS | Encounter Summary ---
Author Organization [facility] [place] [address] Care Team Providers Care Photographer Scientific Name Role Phone John Winkler Primary Care Provider + [phone] Reason for Visit * Reason Comments Skin Lesion Encounter Details Date Type Department Care Team (Late st Contact Info) Description 09/02/2021 4:15 PM EDT Office Visit Dermatology at [address] [place] [address] Abraham Mcdowell MD [address], [place] [address] Seborrheic keratosis; Nevus Social History Tobacco Use Types Packs/Day Years Used Date Smoking Tobacco: Never Smokeless Tobacco: Never Sex and Gender Information Value Date Recorded Sex Assigned at Not on file Gender Identity Not on file Sexual Orientation Not on file documented as of this encounter Progress Notes * Abraham Mcdowell MD - 09/02/2021 4:15 PM EDT Images from the original note were not included. Problem: Right upper lip fissure, nonhealing times months Nevaeh follows up and is now 76. For several months now since the second week in April she had fissuring and cracking of the right upper lip. She had suffered a fall at that time when she fell forward onto pavement grass/gravel and cause a significant abrasion to the right side of her face. The right upper lip was involved as well. Once her face is healed, the lip fissure has not. Physical examination reveals a pleasant 76-year-old who has a fissure of the right upper lateral lip that extends onto the mucosal lip. Anteriorly, on the vermilion border there are 2 firm papules. The rest the facial examination is benign. A photograph was taken. There may be tumor present at the vermilion border, versus granulation tissue. Assessment plan: Nonhealing right upper lip fissuring, rule out BCCA/SCCA versus granulation tissue status post her right facial trauma 1. Today site was anesthetized and shave biopsy was performed of one of the 2 vermilion border papules 2. Triple antibiotic ointment placed. The surgical ink campbell at the vermilion border the soon to bedone site of the biopsy. 3. Specimen submitted for pathologic analysis. Part of the fissure can be seen in the photograph 4. We will notify the patient of her biopsy results in 1 week. CC: RAND Jordan documented in this encounter Plan of Treatment Upcoming Encounters Date Type Department Care Team (Late st Contact Info) Description 04/17/2024 11:00 AM EST Office Visit Dermatology at [place] [address] [place] [address] Abraham Mcdowell MD [address], [place] [address] documented as of this encounter Visit Diagnoses Diagnosis Seborrheic keratosis Other seborrheic keratosis Nevus Benign neoplasm of skin, site unspecified documented in this encounter Care Teams Photographer Scientific Relationship Specialty Start Date End Date John Winkler PA [address] [place] [address] PCP - General Internal Medicine 02/10/21 documented as of this encounter
--- OUTSIDE RECORDS SUMMARY | 2024-03-29 13:32 | XMS_ITS | Encounter Summary ---
Author Organization [facility] Address [address] [place] [address] Care Team Providers Care Rate Analyst Name Role Phone Unavailable Primary Care Provider Unavailabl e Encounter Details Date Type Department Care Team (Late st Contact Info) Description 05/27/2001 Results Only [facility] [address] [place] [address] Cody Mclaughlin MD [address] [place] [address] [id number] Social History Tobacco Use Types Packs/Day Years Used Date Smoking Tobacco: Never Assessed Sex and Gender Information Value Date Recorded Sex Assigned at Not on file Gender Identity Not on file Sexual Orientation Not on file documented as of this encounter Plan of Treatment Not on file documented as of this encounter Procedures Procedure Name Priority Date/Time Associated Diagnosis Comments CYTOPATHOLOGY Routine 05/27/2001 0:00 EST documented in this encounter Results * CYTOPATHOLOGY (05/27/2001 0:00 EST) Pathology Report: CYTOPATHOLOGY REPORT Reports generated via electronic interface contain original data; however they are lacking the format of the original report. Caution should be taken when reading/interpreti ng unformatted reports. Name: ? NEVAEH HOWARD ? Accession #: ? [id number] : ? 1945 (Age: 56) ??F ?Collect Date: ? 05/27/2001 Location: ? [facility] ? Receive Date: ? 05/31/2001 Provider: ?CODY MCLAUGHLIN MD Copy to: ? Specimen/Source: ?ThinPrep Pap Test, Cervix/Endocervix Last Menstrual Period: ? Hormonal/Contracep tive Status: ? Premarin: cream Other: ? Additional clinical information: Atrophic vagina ? SPECIMEN ADEQUACY ? Satisfactory for evaluation. GENERAL CATEGORIZATION ? Epithelial Cell Abnormality DESCRIPTIVE DIAGNOSIS ? Atypical glandular cells of undetermined significance (HEAVENLY), see comment. ? COMMENT ? Several groups of atypical endometrial cells are present with ingested neutrophils. Recommend further workup to exclude endometrial pathology, as clinically indicated. ? Document reviewed and electronically signed by: ? Nicole Su MD ? Report Date: ??06/10/2001 14:14 End of Report [facility] 05/27/2001 05/31/2001 Cody Mclaughlin MD PATHOLOGY ORDERABLES [facility] [address] [place] [address] documented in this encounter Visit Diagnoses Not on filedocumented in this encounter
--- OUTSIDE RECORDS SUMMARY | 2024-03-29 13:32 | XMS_ITS | Encounter Summary ---
Author Organization [facility] [place] [address] Care Team Providers Care Motor Assembler Name Role Phone John Winkler Primary Care Provider + [phone] Encounter Details Date Type Department Care Team (Latest Contact Info) Description 04/15/2023 Travel Social History Tobacco Use Types Packs/Day Years Used Date Smoking Tobacco: Never Smokeless Tobacco: Never Sex and Gender Information Value Date Recorded Sex Assigned at Not on file Gender Identity Not on file Sexual Orientation Not on file documented as of this encounter Plan of Treatment Upcoming Encounters Date Type Department Care Team (Late st Contact Info) Description 04/17/2024 11:00 AM EST Office Visit Dermatology at [place] [address] [place] [id number] Abraham Mcdowell MD [address], [place] [address] documented as of this encounter Visit Diagnoses Not on filedocumented in this encounter Care Teams Motor Assembler Relationship Specialty Start Date End Date John Winkler PA [address] [place] [address] PCP - General Internal Medicine 02/10/21 documented as of this encounter
--- OUTSIDE RECORDS SUMMARY | 2024-03-29 13:32 | XMS_ITS | Encounter Summary ---
Author Organization [facility] Address [address] [place] [address] Care Team Providers Care Data Center Consultant Name Role Phone Unavailable Primary Care Provider Unavailabl e Encounter Details Date Type Department Care Team (Late st Contact Info) Description 03/11/2000 Results Only [facility] - Maple conversion [address] [place] [address] Cody Mclaughlin MD [address] [place] [address] [address] [phone] Social History Tobacco Use Types Packs/Day Years Used Date Smoking Tobacco: Never Assessed Sex and Gender Information Value Date Recorded Sex Assigned at Not on file Gender Identity Not on file Sexual Orientation Not on file documented as of this encounter Plan of Treatment Not on file documented as of this encounter Procedures Procedure Name Priority Date/Time Associated Diagnosis Comments CYTOPATHOLOGY Routine 03/11/2000 0:00 EDT documented in this encounter Results * CYTOPATHOLOGY (03/11/2000 0:00 EDT) Pathology Report: CYTOPATHOLOGY REPORT Reports generated via electronic interface contain original data; however they are lacking the format of the original report. Caution should be taken when reading/interpreti ng unformatted reports. Name: ? NEVAEH HOWARD ? Accession #: ? [id number] : ? 1945 (Age: 55) ??F ?Collect Date: ? 03/11/2000 Location: ? [facility] ? Receive Date: ? 03/15/2000 Provider: ?CODY MCLAUGHLIN MD Copy to: ? Specimen/Source: ?ThinPrep Pap Test, Cervix/Endocervix Last Menstrual Period: ? Hormonal/Contracep tive Status: ? Yes Other: ? Additional clinical information: Atrophic vagina. ? SPECIMEN ADEQUACY ? Satisfactory for evaluation. GENERAL CATEGORIZATION ? Within Normal Limits ? Document reviewed and electronically signed by: ? AQUILINO Yi(ASCP) ? Report Date: ??03/17/2000 10:47 End of Report SENTHIL MAHER 03/11/2000 03/15/2000 Cody Mclaughlin MD PATHOLOGY ORDERABLES SENTHIL MAHER [address] [place] [address] documented in this encounter Visit Diagnoses Not on filedocumented in this encounter
--- OUTSIDE RECORDS SUMMARY | 2024-03-29 13:32 | XMS_ITS | Encounter Summary ---
Author Organization [facility] Address [facility] [place] [address] Care Team Providers Care Satellite Project Site Monitor Name Role Phone John Winkler Primary Care Provider + [phone] Encounter Details Date Type Department Care Team (Late st Contact Info) Description 09/10/2021 Telephone Dermatology at [address] [address] Rebecca Dueñas LPN Social History Tobacco Use Types Packs/Day Years Used Date Smoking Tobacco: Never Smokeless Tobacco: Never Sex and Gender Information Value Date Recorded Sex Assigned at Not on file Gender Identity Not on file Sexual Orientation Not on file documented as of this encounter Miscellaneous Notes * Telephone Encounter - Rebecca Dueñas LPN - 09/10/2021 8:51 AM EDT 09/02/21 Right upper lip at mary border, shave Dx: Actinic keratosis Dr. Mcdowell recommends patient schedule follow up for him to discuss treatment. Reviewed biopsy results and Dr. Mcdonald recommendation with patient. She voiced understanding and f/u was scheduled. documented in this encounter Plan of Treatment Upcoming Encounters Date Type Department Care Team (Late st Contact Info) Description 04/17/2024 11:00 AM EST Office Visit Dermatology at [address] [address] Abraham Mcdowell MD [address] [facility], MEL A DERMATOLOGY [place], [place] [id number] documented as of this encounter Visit Diagnoses Not on filedocumented in this encounter Care Teams Satellite Project Site Monitor Relationship Specialty Start Date End Date John Winkler PA [address] [place] [address] PCP - General Internal Medicine 02/10/21 documented as of this encounter
--- OUTSIDE RECORDS SUMMARY | 2024-03-29 13:32 | XMS_ITS | Encounter Summary ---
Author Organization [facility] [place] [address] Care Team Providers Care Chainsaw Mechanic Name Role Phone John Winkler Primary Care Provider + [phone] Reason for Visit * Reason Comments Follow-up Encounter Details Date Type Department Care Team (Late st Contact Info) Description 11/18/2021 3:15 PM EDT Office Visit Dermatology at [address] [place] [address] Abraham Mcdowell MD [address], [place] [address] Seborrheic keratosis; Nevus; AK (actinic keratosis) Social History Tobacco Use Types Packs/Day Years Used Date Smoking Tobacco: Never Smokeless Tobacco: Never Sex and Gender Information Value Date Recorded Sex Assigned at Not on file Gender Identity Not on file Sexual Orientation Not on file documented as of this encounter Progress Notes * Abraham Mcdowell MD - 11/18/2021 3:15 PM EDT Problem: 1. History of actinic keratosis right upper lateral lip at vermilion border 2. Follow status post 1 month course of imiquimod cream to lip site September 2021 Nevaeh follows up after using imiquimod cream initially 3 times a week for total of 2 weeks to the right upper lateral lip at the midline border for a biopsy- proven actinic keratosis. She had excessive swelling and reaction and called the office. I advised her to stop using the cream for 2 to 3 weeks until things normalize and then just try using it 2 days a week. She did so and was able to tolerate 2 more weeks and now returns for repeat check. Physical examination reveals a pleasant 76-year-old woman who has still some faint erythema on the right upper lateral lip at the vermilion border at the site of her imiquimod cream application. The rest of this facial skin examination is benign. Assessment plan: Actinic keratosis, resolved 1. Patient congratulated on good response 2. If we ever use imiquimod cream again would only use twice weekly to lip 3. Recommend follow-up in the fall for repeat skin checkup. CC: RAND Jordan documented in this encounter Plan of Treatment Upcoming Encounters Date Type Department Care Team (Late st Contact Info) Description 04/17/2024 11:00 AM EST Office Visit Dermatology at [place] [address] [place] [address] Abraham Mcdowell MD [address], [place] [address] documented as of this encounter Visit Diagnoses Diagnosis Seborrheic keratosis Other seborrheic keratosis Nevus Benign neoplasm of skin, site unspecified AK (actinic keratosis) Actinic keratosis documented in this encounter Care Teams Chainsaw Mechanic Relationship Specialty Start Date End Date John Winkler PA [address] [place] [address] PCP - General Internal Medicine 02/10/21 documented as of this encounter
--- OUTSIDE RECORDS SUMMARY | 2024-03-29 13:32 | XMS_ITS | Encounter Summary ---
Author Organization [facility] Address [address] [place] [address] Care Team Providers Care Office Services Clerk Name Role Phone Unavailable Primary Care Provider Unavailabl e Encounter Details Date Type Department Care Team (Late st Contact Info) Description 06/29/2005 Results Only [facility] - Maple conversion [address] [place] [address] Cody Mclaughlin MD [address] [place] [address] [phone] Social History Tobacco Use Types Packs/Day Years Used Date Smoking Tobacco: Never Assessed Sex and Gender Information Value Date Recorded Sex Assigned at Not on file Gender Identity Not on file Sexual Orientation Not on file documented as of this encounter Plan of Treatment Not on file documented as of this encounter Procedures Procedure Name Priority Date/Time Associated Diagnosis Comments CYTOPATHOLOGY Routine 06/29/2005 0:00 EST documented in this encounter Results * CYTOPATHOLOGY (06/29/2005 0:00 EST) Pathology Report: CYTOPATHOLOGY REPORT Reports generated via electronic interface contain original data; however they are lacking the format of the original report. Caution should be taken when reading/interpreti ng unformatted reports. Name: ? NEVAEH HOWARD ? Accession #: ? [id number] : ? 1945 (Age: 60) ??F ?Collect Date: ? 06/29/2005 Location: ? [facility] ? Receive Date: ? 07/01/2005 Provider: ?CODY MCLAUGHLIN MD Copy to: ? Specimen/Source: ?ThinPrep Pap Test, Vagina, processed on KDS ThinPrep Imaging System, with manual evaluation Last Menstrual Period: ? Treatment History: ? Hysterectomy: for cancer ? SPECIMEN ADEQUACY ? Satisfactory for Evaluation - assessment of transformation zone component not applicable ( e.g. atrophy, vaginal sample, hysterectomy) GENERAL CATEGORIZATION ? Negative for Intraepithelial Lesion or Malignancy ? Document reviewed and electronically signed by: ? Hema Flor, AQUILINO(ASCP) ? Report Date: ??07/03/2005 09:39 End of Report SENTHIL MAHER 06/29/2005 07/01/2005 Cody Mclaughlin MD PATHOLOGY ORDERABLES SENTHIL MAHER [address] [place] [address] documented in this encounter Visit Diagnoses Not on filedocumented in this encounter
--- OUTSIDE RECORDS SUMMARY | 2024-03-29 13:32 | XMS_ITS | Encounter Summary ---
Author Organization [facility] Address [address] [facility] [place] [address] Care Team Providers Care Leather Belt Loop Cutter Name Role Phone John Winkler Primary Care Provider + [phone] Encounter Details Date Type Department Care Team (Late st Contact Info) Description 10/13/2021 Telephone Dermatology at [address] [place] [address] Angeles Martinez RN Social History Tobacco Use Types Packs/Day Years Used Date Smoking Tobacco: Never Smokeless Tobacco: Never Sex and Gender Information Value Date Recorded Sex Assigned at Not on file Gender Identity Not on file Sexual Orientation Not on file documented as of this encounter Miscellaneous Notes * Telephone Encounter - Angeles Martinez RN - 10/13/2021 2:24 PM EDT Pt had called earlier today att 1035 stated that she started her treatment with the Imiquimod creamon 26 September and using it per Dr. Mcdowell's directions on 09/18/2021. Pt. Stated that her upper lip is swollen and red and it grows a blister and it pops and yellow fluid comes out. She also stated she thinks she has a cold sore on the bottom lip right below where she puts the Imiquimod on her upper lip. She feels that she has sensitive skin and she does get a lot of cold sores. Pt stated that at times her pain on her lip can be 5-7/10. Discussed with Dr. Mcdowell and plan is for the patient to discontinue the imiquimod until her lips heal up then start the imiquimod again but only use 2 times a week for another 2 weeks. Pt can also use OTC oint/lotion treatment for cold sore, however Dr. Mcdowell feels the lower lip reaction is due to the imiquimod getting on her bottom lip since it is in line with where she is putting the medication on her upper lip. Called patient back and informed her of the new plan. Pt stated that she understood and did not have any questions at this time. Pt does have a follow up with Dr. Mcdowell 11/18/2021 for a 2 month follow up and one on 02/13/2022 for an annual check. Pt reminded of her appointments. documented in this encounter Plan of Treatment Upcoming Encounters Date Type Department Care Team (Late st Contact Info) Description 04/17/2024 11:00 AM EST Office Visit Dermatology at [place] [address] [facility] [place] [address] Abraham Mcdowell MD [address], [place] [address] documented as of this encounter Visit Diagnoses Not on filedocumented in this encounter Care Teams Leather Belt Loop Cutter Relationship Specialty Start Date End Date John Winkler PA [address] [place] [address] PCP - General Internal Medicine 02/10/21 documented as of this encounter
--- OUTSIDE RECORDS SUMMARY | 2024-03-29 13:32 | XMS_ITS | Encounter Summary ---
Author Organization [facility] [place] [address] Care Team Providers Care Studio Operations Manager Name Role Phone John Winkler Primary Care Provider + [phone] Reason for Visit * Reason Comments Follow-up Encounter Details Date Type Department Care Team (Late st Contact Info) Description 10/13/2022 3:30 PM EDT Office Visit Dermatology at [address] [place] [address] Abraham Mcdowell MD [address], [place] [address] Seborrheic keratosis; Nevus; AK (actinic keratosis) Social History Tobacco Use Types Packs/Day Years Used Date Smoking Tobacco: Never Smokeless Tobacco: Never Sex and Gender Information Value Date Recorded Sex Assigned at Not on file Gender Identity Not on file Sexual Orientation Not on file documented as of this encounter Progress Notes * Abraham Mcdowell MD - 10/13/2022 3:30 PM EDT Problem: 1. ??History of actinic keratosis right upper lateral lip at vermilion border 2. ??Follow status post 1 month course of imiquimod cream to lip site September 2021, with excessive reaction Nevaeh follows up for a 6-month repeat skin checkup. Physical examination reveals a pleasant 77-year-old woman who has a benign examination of the head and neck the chest the back the hands arms forearms thighs and calves. There is no evidence of any cutaneous malignancies or premalignant lesions today. Assessment and plan: Benign skin examination 1. Patient reassured about her benign skin examination 2. Return to clinic in 6 months for recheck. CC: RAND Jordan documented in this encounter Plan of Treatment Upcoming Encounters Date Type Department Care Team (Late st Contact Info) Description 04/17/2024 11:00 AM EST Office Visit Dermatology at [place] [address] [facility] [place] [address] Abraham Mcdowell MD [address] [address] [place] [address] documented as of this encounter Visit Diagnoses Diagnosis Seborrheic keratosis Other seborrheic keratosis Nevus Benign neoplasm of skin, site unspecified AK (actinic keratosis) Actinic keratosis documented in this encounter Care Teams Studio Operations Manager Relationship Specialty Start Date End Date John Winkler PA [address] [place] [address] PCP - General Internal Medicine 02/10/21 documented as of this encounter
--- OUTSIDE RECORDS SUMMARY | 2024-03-29 13:32 | XMS_ITS | Clinical Summary ---
Author Organization [facility] Address [address] [place] [address] Care Team Providers Care Conciliation Court Judge Name Role Phone Unavailable Primary Care Provider Unavailabl e Social History Tobacco Use Types Packs/Day Years Used Date Smoking Tobacco: Never Assessed Sex and Gender Information Value Date Recorded Sex Assigned at Not on file Gender Identity Not on file Sexual Orientation Not on file Plan of Treatment Health Maintenance Due Date Last Done Comments Hepatitis C Screen 1945 RSV Immunization ( o r 60+ Years) (1 - 1-dose 60+ series) 2004 Fall Risk Screening 02/11/2009 COVID-19 Vaccine (2022-24 season) 2023
--- OUTSIDE RECORDS SUMMARY | 2024-03-29 13:32 | XMS_ITS | Encounter Summary ---
Author Organization [facility] Address [address] [place] [address] Care Team Providers Care Application Security Architect Name Role Phone Unavailable Primary Care Provider Unavailabl e Encounter Details Date Type Department Care Team (Late st Contact Info) Description 01/16/2002 Results Only [facility] [place] - Maple conversion [address] [place] [address] Cody Mclaughlin MD [address] [place] [address] [address] [address] Social History Tobacco Use Types Packs/Day Years Used Date Smoking Tobacco: Never Assessed Sex and Gender Information Value Date Recorded Sex Assigned at Not on file Gender Identity Not on file Sexual Orientation Not on file documented as of this encounter Plan of Treatment Not on file documented as of this encounter Procedures Procedure Name Priority Date/Time Associated Diagnosis Comments CYTOPATHOLOGY Routine 01/16/2002 0:00 EDT documented in this encounter Results * CYTOPATHOLOGY (01/16/2002 0:00 EDT) Pathology Report: CYTOPATHOLOGY REPORT Reports generated via electronic interface contain original data; however they are lacking the format of the original report. Caution should be taken when reading/interpreti ng unformatted reports. Name: ? NEVAEH HOWARD ? Accession #: ? [id number] : ? 1945 (Age: 56) ??F ?Collect Date: ? 01/16/2002 Location: ? [facility] ? Receive Date: ? 01/18/2002 Provider: ?CODY MCLAUGHLIN MD Copy to: ? Specimen/Source: ?ThinPrep Pap Test, Vagina Last Menstrual Period: ? Hormonal/Contracep tive Status: ? 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 Hysterectomy ? SPECIMEN ADEQUACY ? Satisfactory for Evaluation - assessment of transformation zone component not applicable ( e.g. atrophy, vaginal sample, hysterectomy) GENERAL CATEGORIZATION ? Negative for Intraepithelial Lesion or Malignancy ? Document reviewed and electronically signed by: ? Lorelei Liu, CT(ASCP) ? Report Date: ??01/20/2002 13:25 End of Report SENTHIL MAHER 01/16/2002 01/18/2002 Cody Mclaughlin MD PATHOLOGY ORDERABLES SENTHIL MAHER [address] [place] [address] documented in this encounter Visit Diagnoses Not on filedocumented in this encounter
--- OUTSIDE RECORDS SUMMARY | 2024-03-29 13:32 | XMS_ITS | Clinical Summary ---
Author Organization [facility] Address [facility] [place] [address] Care Team Providers Care Coal Conveyor Operator Name Role Phone John Winkler Primary Care Provider [phone] Allergies No known active allergies Medications Medication Sig Dispensed Refills Start Date End Date Status atorvastatin (Lipitor) 20 mg Tablet 12/31/2020 Active montelukast (Singulair) 10 mg Tablet 12/25/2020 Active omeprazole (PriLOSEC) 40 mg Capsule, Delayed Release(E.C.) Take by mouth. 11/25/2020 Active Active Problems Problem Noted Date Diagnosed Date Ankle injury 11/18/2021 Trochanteric bursitis, left hip 11/18/2021 Social History Tobacco Use Types Packs/Day Years Used Date Smoking Tobacco: Never Smokeless Tobacco: Never Sex and Gender Information Value Date Recorded Sex Assigned at Not on file Gender Identity Not on file Sexual Orientation Not on file Plan of Treatment Upcoming Encounters Date Type Department Care Team (Late st Contact Info) Description 04/17/2024 11:00 AM EST Office Visit Dermatology at [place] [address] [place] [phone] Abraham Mcdowell MD [address], [address] [address] Health Maintenance Due Date Last Done Comments Hepatitis C Screening 02/11/1962 Tetanus/Diphtheria/Pertussis Vaccines (1 - Tdap) 02/11 Zoster vaccine (1 of 2) 02/11/1994 Advance Directive 02/11/1999 Bone Density Scan 02/11/2009 Pneumoccocal Vaccine: 65+ (1 of 1 - PCV) 02/11/2009 Covid-19 Vaccine ( season) 2024 Influenza (Flu) vaccine (1 o f 1 - Influenza standard series) 02/13/2024 Care Teams Coal Conveyor Operator Relationship Specialty Start Date End Date John Winkler PA [address] [place] [address] PCP - General Internal Medicine 02/10/21
--- OUTSIDE RECORDS SUMMARY | 2024-03-29 13:32 | XMS_ITS | Encounter Summary ---
Author Organization [facility] [place] [address] Care Team Providers Care Embryology Professor Name Role Phone John Winkler Primary Care Provider [phone] Encounter Details Date Type Department Care Team (Late st Contact Info) Description 09/18/2021 Refill Dermatology at [address] [phone] Rebecca Dueñas, [employer] WEBSPHERE PORTAL DEVELOPER Social History Tobacco Use Types Packs/Day Years [...] 11:00 AM EST Office Visit Dermatology at [address] [phone] Abraham Mcdowell MD [address] [facility], [place] [address] documented as of this encounter Visit Diagnoses Not on filedocumented in this encounter Care Teams Embryology Professor Relationship Specialty Start Date End Date John Winkler PA [address] [facility] [address] [place] [address] PCP - General Internal Medicine 02/10/21 documented as of this encounter
--- OUTSIDE RECORDS SUMMARY | 2024-03-29 13:32 | XMS_ITS | Encounter Summary ---
Author Organization [facility] [address] Care Team Providers Care Gluing Machine Adjuster Name Role Phone John Winkler Primary Care Provider + [phone] Encounter Details Date Type Department Care Team (Latest Contact Info) Description 10/13/2022 Travel Social History Tobacco Use Types Packs/Day [...] 11:00 AM EST Office Visit Dermatology at [place] [address] [facility] [place] [phone] Abraham Mcdowell MD [address] [place] [address] documented as of this encounter Visit Diagnoses Not on filedocumented in this encounter Care Teams Gluing Machine Adjuster Relationship Specialty Start Date End Date John Winkler PA [address] [place] [address] PCP - General Internal Medicine 02/10/21 documented as of this encounter
--- OUTSIDE RECORDS SUMMARY | 2024-03-29 13:32 | XMS_ITS | Encounter Summary ---
Author Organization [facility] Address [address] [place] [address] Care Team Providers Care Wreath And Garland Maker Name Role Phone Unavailable Primary Care Provider Unavailabl e Encounter Details Date Type Department Care Team (Late st Contact Info) Description 07/09/2022 Lab Requisition [facility] Pathology & Laboratory Medicine - [facility] [address] [place] [address] Outr Resulting Lab, Provider Social History Tobacco Use Types Packs/Day Years Used Date Smoking Tobacco: Never Assessed Sex and Gender Information Value Date Recorded Sex Assigned at Not on file Gender Identity Not on file Sexual Orientation Not on file documented as of this encounter Plan of Treatment Not on file documented as of this encounter Procedures Procedure Name Priority Date/Time Associated Diagnosis Comments ZZCOVID-19 TEST [facility] PCR Today 07/08/2022 12:01 EST COVID-19 TESTING Routine 07/08/2022 12:0 1 EST documented in this encounter Results * COVID-19 TEST [facility] PCR (07/08/2022 12:01 EST) Swab 07/08/2022 12:0 1 EST 07/09/2022 19:16 EST Provider Outr Resulting Lab MICROBIOLOGY - GENERAL ORDERABLES [facility] [address] [place] [address] * COVID-19 TESTING (07/08/2022 12:01 EST) COVID-19 rt-PCR Result Negative Negative 07/10/2022 11:25 EST [facility] Comment: This test has not been FDA cleared or approved. This test has been authorized by FDA under an EUA for use by authorized laboratories. This test has been authorized only for detection of nucleic acid from 2019-nCoV, not for any other viruses or pathogens. This test is only authorized for the duration of the declaration that circumstances exist justifying the authorization of emergency use of in vitro diagnostic tests for detection and/or diagnosis of 2019-nCoV under section 564(b)(1) of Act, 21 U.S.C ?? 360bbb-3(b) (1), unless the authorization is terminated or revoked sooner. Negative results do not preclude 2019-nCoV infection and should not be used as the sole basis for treatment or other patient management decisions. Negative results must be combined with clinical observations, patient history, and epidemiological information. Testing was performed using the karen SARS-CoV-2 assay ([employer] on the Karen 6800 System Performing Lab Karen 6800 [facility] 07/10/2022 11:25 EST [facility] Swab 07/08/2022 12:0 1 EST 07/09/2022 19:16 EST Provider Outr Resulting Lab MICROBIOLOGY - GENERAL ORDERABLES [facility] [address] [place] [address] documented in this encounter Visit Diagnoses Not on filedocumented in this encounter
--- OUTSIDE RECORDS SUMMARY | 2024-03-29 13:32 | XMS_ITS | Encounter Summary ---
Author Organization [facility] [place] [address] Care Team Providers Care Border Patrol Officer Name Role Phone John Winkler Primary Care Provider + [phone] Reason for Visit * Reason Comments Follow-up Encounter Details Date Type Department Care Team (Late st Contact Info) Description 09/18/2021 3:15 PM EDT Office Visit Dermatology at [address] [place] [address] Abraham Mcdowell MD [address], [place] [address] [place] (actinic keratosis) Social History Tobacco Use Types Packs/Day Years Used Date Smoking Tobacco: Never Smokeless Tobacco: Never Sex and Gender Information Value Date Recorded Sex Assigned at Not on file Gender Identity Not on file Sexual Orientation Not on file documented as of this encounter Progress Notes * Abraham Mcdowell MD - 09/18/2021 3:15 PM EDT Problem: Follow-up status post shave biopsy upper lip vermilion border Nevaeh follows up and fortunately the biopsy from her right upper cutaneous lip at the midline border came back showing an actinic keratosis. There is no evidence of SCCA. Physical examination reveals a pleasant 76 woman who still has some mild hyperkeratosis at that right lateral upper lip site on the vermilion border Assessment and plan: Actinic keratosis right upper cutaneous lip 1. Begin imiquimod 5% cream applying Wednesdays and Fridays only on a once daily evening basis for 4 weeks then discontinue 2. Will dispense imiquimod cream 3 g / 12 packets with 0 refills 3. She recalls having used what sounds like 5-FU in [place] from her then regional administrative assistant with fairlyvigorous reaction. I reassured her that this reaction should not be so pronounced 4. Return to clinic here in 2 months for repeat check. CC: RAND Jordan documented in this encounter Plan of Treatment Upcoming Encounters Date Type Department Care Team (Late st Contact Info) Description 04/17/2024 11:00 AM EST Office Visit Dermatology at [place] [address] [place] [address] Abraham Mcdowell MD [address], [place] [address] documented as of this encounter Visit Diagnoses Diagnosis AK (actinic keratosis) Actinic keratosis documented in this encounter Care Teams Border Patrol Officer Relationship Specialty Start Date End Date John Winkler PA [address] [place] [address] PCP - General Internal Medicine 02/10/21 documented as of this encounter
--- OUTSIDE RECORDS SUMMARY | 2024-03-29 13:32 | XMS_ITS | Encounter Summary ---
Author Organization [facility] [place] [address] Care Team Providers Care Greens Tier Name Role Phone John Winkler Primary Care Provider + [phone] Reason for Visit * Reason Comments Skin Check Encounter Details Date Type Department Care Team (Late st Contact Info) Description 04/15/2023 3:15 PM EDT Office Visit Dermatology at [address] [place] [address] Abraham Mcdowell MD [address], [place] [address] Seborrheic keratosis; Nevus Social History Tobacco Use Types Packs/Day Years Used Date Smoking Tobacco: Never Smokeless Tobacco: Never Sex and Gender Information Value Date Recorded Sex Assigned at Not on file Gender Identity Not on file Sexual Orientation Not on file documented as of this encounter Progress Notes * Abraham Mcdowell MD - 04/15/2023 3:15 PM EDT Problem: 1. History of actinic keratosis right upper lateral lip at vermilion border 2. Follow status post 1 month course of imiquimod cream to lip site September 2021, with excessive reaction 3. 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 She is here with her Tomasz whom she cares for with his worsening Alzheimer's. Physical examination reveals a pleasant 78-year-old woman who has a benign examination of the head and the neck the chest the back the hands on forearms thighs and calves. There is no evidence of recurrent actinic keratosis on the right upper cutaneous lip. She has a benign examination today Assessment plan: Benign skin examination 1. Patient reassured about her benign skin examination 2. Recommend I see her again in a year for repeat check. CC: RAND Jordan documented in this encounter Plan of Treatment Upcoming Encounters Date Type Department Care Team (Late st Contact Info) Description 04/17/2024 11:00 AM EST Office Visit Dermatology at [place] [address] [place] [address] Abraham Mcdowell MD [address], [place] [address] documented as of this encounter Visit Diagnoses Diagnosis Seborrheic keratosis Other seborrheic keratosis Nevus Benign neoplasm of skin, site unspecified documented in this encounter Care Teams Greens Tier Relationship Specialty Start Date End Date John Winkler PA [address] [place] [address] PCP - General Internal Medicine 02/10/21 documented as of this encounter
--- OUTSIDE RECORDS SUMMARY | 2024-03-29 13:32 | XMS_ITS | Encounter Summary ---
Author Organization [facility] [place] [address] Care Team Providers Care Hemodialysis Patient Care Specialist Name Role Phone John Winkler Primary Care Provider + [phone] Reason for Visit * Reason Comments Annual Exam Encounter Details Date Type Department Care Team (Late st Contact Info) Description 02/13/2022 10:00 AM EDT Office Visit Dermatology at [address] [place] [address] Abraham Mcdowell MD [address] [facility], [place] [address] Seborrheic keratosis; Nevus; AK (actinic keratosis) Social History Tobacco Use Types Packs/Day Years Used Date Smoking Tobacco: Never Smokeless Tobacco: Never Sex and Gender Information Value Date Recorded Sex Assigned at Not on file Gender Identity Not on file Sexual Orientation Not on file documented as of this encounter Progress Notes * Abraham Mcdowell MD - 02/13/2022 10:00 AM EDT Problem: 1. History of actinic keratosis right upper lateral lip at vermilion border 2. Follow status post 1 month course of imiquimod cream to lip site September 2021, with excessive reaction Nevaeh follows up is now 77. She is here for a repeat skin checkup. She continues to have an actinickeratosis of the right upper lateral lip at the vermilion border. Physical examination reveals a hyperkeratotic flattopped papule at this location with fissuring both was left and right. Otherwise she has a benign examination of the face the neck the chest the backthe hands arms forearms thighs and calves. Assessment plan: Actinic keratosis right upper cutaneous lip new, recurrent 1. LN 2 x 2 applied to site aggressively 2. Patient developed a small blister here posttreatment. Fluid was removed 3. Return to clinic in 6 months for repeat check Benign skin examination 1. Patient reassured about her otherwise benign skin examination. 2. Return to clinic in 6 months for repeat check CC: RAND Jordan documented in this encounter Plan of Treatment Upcoming Encounters Date Type Department Care Team (Late st Contact Info) Description 04/17/2024 11:00 AM EST Office Visit Dermatology at [place] [address] [place] [address] Abraham Mcdowell MD [address], [place] [address] documented as of this encounter Visit Diagnoses Diagnosis Seborrheic keratosis Other seborrheic keratosis Nevus Benign neoplasm of skin, site unspecified AK (actinic keratosis) Actinic keratosis documented in this encounter Care Teams Hemodialysis Patient Care Specialist Relationship Specialty Start Date End Date John Winkler PA [address] [facility] [address] [place] [address] PCP - General Internal Medicine 02/10/21 documented as of this encounter
--- OUTSIDE RECORDS SUMMARY | 2024-03-29 13:32 | XMS_ITS | Encounter Summary ---
Author Organization [facility] Address [facility] [place] [address] Care Team Providers Care Yarn Salvager Name Role Phone John Winkler Primary Care Provider [phone] Encounter Details Date Type Department Care Team (Latest Contact Info) Description 09/02/2021 10:27 PM EDT - 09/02/2021 11:59 PM EDT Hospital [place] [id number] Discharge Disposition: Home Social History Tobacco Use Types Packs/Day Years Used Date Smoking Tobacco: Never Smokeless Tobacco: Never Sex and Gender Information Value Date Recorded Sex Assigned at Not on file Gender Identity Not on file Sexual Orientation Not on file documented as of this encounter Medications at Time of Discharge Medication Sig Dispensed Refills Start Date End Date atorvastatin (Lipitor) 20 mg Tablet 12/31/2020 montelukast (Singulair) 10 mg Tablet 12/25/2020 omeprazole (PriLOSEC) 40 mg Capsule, Delayed Release(E.C.) Take by mouth. 11/25/2020 Yuvafem 10 mcg Tablet INSERT 1 TABLET IN VAGINA ONCE A WEEK DIRECTED 08/08/2021 04/15/2023 simvastatin (Zocor) 10 mg Tablet Take by mouth. 05/21/2020 04/15/2023 documented as of this encounter Plan of Treatment Upcoming Encounters Date Type Department Care Team (Late st Contact Info) Description 04/17/2024 11:00 AM EST Office Visit Dermatology at [place] [address] [place] [address] Abraham Mcdowell MD [address], [place] [address] documented as of this encounter Procedures Procedure Name Priority Date/Time Associated Diagnosis Comments SURGICAL PATHOLOGY REPORT Routine 09/02/2021 12:00 PM EDT documented in this encounter Results * Surgical Pathology Report (09/02/2021 12:00 PM EDT) Final Diagnosis [id number] ? Location: [facility] The signing pathologist has (i) examined the relevant preparation(s) for the specimen(s) and (ii) rendered or confirmed the diagnosis(es). . ?Surgical Pathology DIAGNOSIS Right upper lip at mary border, shave: - ??Actinic keratosis (see Discussion) Electronically signed by: ?Peter MARTINEZ, PhD, Tawana Verified: ??09/08/2021 13:16 ??Dermatopatholog ist Performed at: ??-[facility], [place], [place] DISCUSSION The biopsy shows acanthosis with basal layer atypia, overlying ? parakeratosis containing inflamed serum crust. No fungi are seen in PAS-reacted sections. Findings in the biopsy are consistent with actinic keratosis, inflamed. ? Basal cell carcinoma is not seen with multiple deeper levels examined. ADDITIONAL STUDIES Special stains are performed. ?? Block ? Stain ?Result ( Positive / Negative ) ??A1 ?PAS/F ? Negative for fungi SPECIMEN(S) SUBMITTED A - R upper lip at mary border, shave Referring Identifier: ?(not provided) Report to: (not provided) CLINICAL INFORMATION Pearly papule on Mary border, above non-healing (x weeks) fissure of lip below it. Rule out BCC. SPECIMEN PROCESSING A - Labeled/Fixative: Patient demographics, formalin. Quantity/Size: ??Single, 0.7 x 0.4 x 0.1 cm. Tissue Description: Sánchez-wallace skin shave with a 0.4 x 0.3 cm pink papule. Sections/Processi ng: Inked, trisected and entirely submitted in 1 cassette labeled A1. ??jnr 09/08/2021 1:16 PM EDT [facility] SPECIMEN FROM SKIN / Unknown 09/02/2021 12:00 PM EDT 09/02/2021 12:00 PM EDT Abraham Mcdowell MD PATHOLOGY/CYTOLOGY O RDERALINDA [facility] [place] [address] documented in this encounter Visit Diagnoses Not on filedocumented in this encounter Care Teams Yarn Salvager Relationship Specialty Start Date End Date John iWnkler PA [address] [place] [address] PCP - General Internal Medicine 02/10/21 documented as of this encounter
--- OUTSIDE RECORDS SUMMARY | 2024-03-29 13:32 | XMS_ITS | Referral Summary ---
Author Organization [facility] Address [address] [place] [address] Care Team Providers Care Photoresist Contact Printer Name Role Phone Unavailable Primary Care Provider Unavailabl e Social History Tobacco Use Types Packs/Day Years Used Date Smoking Tobacco: Never Assessed Sex and Gender Information Value Date Recorded Sex Assigned at Not on file Gender Identity Not on file Sexual Orientation Not on file Plan of Treatment Not on file
--- OUTSIDE RECORDS SUMMARY | 2024-03-29 13:32 | XMS_ITS | Encounter Summary ---
Author Organization [facility] [place] [address] Care Team Providers Care Research Project Coordinator Name Role Phone John Winkler Primary Care Provider + [phone] Reason for Visit * Reason Comments Skin Check Encounter Details Date Type Department Care Team (Late st Contact Info) Description 02/10/2021 3:45 PM EDT Office Visit Dermatology at [address] [place] [address] Abraham Mcdowell MD [address], [place] [address] Seborrheic keratosis; Nevus Social History Tobacco Use Types Packs/Day Years Used Date Smoking Tobacco: Never Smokeless Tobacco: Never Sex and Gender Information Value Date Recorded Sex Assigned at Not on file Gender Identity Not on file Sexual Orientation Not on file documented as of this encounter Progress Notes * Abraham Mcdowell MD - 02/10/2021 3:45 PM EDT Problem: Skin check Nevaeh is a 75-year-old woman who would like to have a general skin checkup. I had seen her in the past but she had been moved with her Tomasz to live in [place] [facility] for many years. They were both followed there regularly by a modeling analyst. They have now returned to the [facility] and lives in [place]. Physical examination reveals a pleasant 75 woman who has a benign examination of the head and the neck the chest the back the hands the arms of forearms the thighs and the calves. There is no evidence of any malignant lesions. Assessment and plan: Benign skin examination 1. Patient reassured about her benign skin examination 2. Continue sun avoidance precautions 3. Return to clinic here in a year for repeat check. CC: RAND Jordan documented in this encounter Plan of Treatment Upcoming Encounters Date Type Department Care Team (Late st Contact Info) Description 04/17/2024 11:00 AM EST Office Visit Dermatology at [place] [address] [facility] [place] [address] Abraham Mcdowell MD [address], [place] [address] documented as of this encounter Visit Diagnoses Diagnosis Seborrheic keratosis Other seborrheic keratosis Nevus Benign neoplasm of skin, site unspecified documented in this encounter Care Teams Research Project Coordinator Relationship Specialty Start Date End Date John Winkler PA [address] [place] [address] PCP - General Internal Medicine 02/10/21 documented as of this encounter
--- OUTSIDE RECORDS SUMMARY | 2024-03-29 13:32 | XMS_ITS | Encounter Summary ---
Author Organization [facility] Address [address] [place] [address] Care Team Providers Care Coordinator Integrated Marketing Name Role Phone Unavailable Primary Care Provider Unavailabl e Encounter Details Date Type Department Care Team (Late st Contact Info) Description 01/05/2002 Results Only [facility] [address] [place] [address] Henri Brunson MD [address] [place] [address] Social History Tobacco Use Types Packs/Day Years Used Date Smoking Tobacco: Never Assessed Sex and Gender Information Value Date Recorded Sex Assigned at Not on file Gender Identity Not on file Sexual Orientation Not on file documented as of this encounter Plan of Treatment Not on file documented as of this encounter Procedures Procedure Name Priority Date/Time Associated Diagnosis Comments SURGICAL PATHOLOGY Routine 01/05/2002 0:00 EDT documented in this encounter Results * SURGICAL PATHOLOGY (01/05/2002 0:00 EDT) Pathology Report: SURGICAL PATHOLOGY REPORT Reports generated via electronic interface contain original data; however they are lacking the format of the original report. Caution should be taken when reading/interpreti ng unformatted reports. Name: ? NEVAEH HOWARD ? Accession #: ? [id number] ? : ? 1945 (Age: 56) ??F ? Collect Date: ? 01/05/2002 ? Location: ? [facility] ? Receive Date: ? 01/05/2002 ? Provider: HENRI BRUNSON MD Copy to: LILI MAURER MD ? Final Pathologic Diagnosis: ? Vulva, biopsy: - Focal interface dermatitis. ??See microscopic and comment. Comment: ? These findings are non-specific. ??The underlying etiology is unclear, however, lichen sclerosis cannot be completely excluded. ??Dr. Rio Guerrero has reviewed this case in consultation. ??(Dr. Melgoza)/[facility] Microscopic Description: ? The sections show squamous mucosa with focal vacuolar interface changes and a dense, lichenoid, mixed inflammatory infiltrate. ??In addition, there is superficial dermal fibrosis with granulation tissue type vessels. ??(Dr. Melgoza)/[facility] Document reviewed and electronically signed by: SAFIA KEMP MD Report ??Date: 01/09/2002 17:06 By the signature above, the attending physician certifies that he/she has personally conducted a gross and/or microscopic examination of the described specimens and rendered or confirmed the above diagnosis. Specimen(s) Received: ? Vulvar bx Clinical History: ? Tender vulvar lesion; hx adenoCA of endometrium (St I, Gr I ??Rx' ed 08/13) Gross Description: ? Received in formalin labelled Howard is a 0.3 x 0.3 x 0.2 cm shave biopsy of a roldan-brown smooth papular lesion. ??The specimen is submitted intact in one cassette. ??(Berenice Degroot)/[facility] End of Report SENTHIL MAHER 01/05/2002 01/05/2002 15: 32 EDT Henri Brunson MD PATHOLOGY ORDERABLES SENTHIL MAHER [address] [place] [address] documented in this encounter Visit Diagnoses Not on filedocumented in this encounter
[2024-03-29 15:41] LABS: HGB 14.5 g/dL (11.2-15.7); MCHC 30.9 % (32.0-36.0); MCV 87 fL (80-95); Platelet Count 206 10^3/uL (130-400); RBC 5.38 10^6/uL (3.93-5.22); RDW 13.3 % (11.7-14.6); RDW-SD 42.8 fL; WBC 6.12 10^3/uL (4.4-10.8)
[2024-03-29 19:05] LABS: ALT 27 U/L (14-59); AST 21 U/L (15-37); Albumin 3.7 g/dL (3.4-5.0); Alkaline Phosphatase 82 U/L (46-116); Anion Gap 12.8 mmol/L (3-11); BUN 20 mg/dL (7-18); Bilirubin, Total 0.94 mg/dL (0.2-1.0); CO2 27.2 mmol/L (21.0-32.0); CREATININE 0.7 mg/dL (0.55-1.02); Calcium 9.4 mg/dL (8.5-10.1); Calculated LDL 110 mg/dL (<100); Chloride 109 mmol/L (98-107); Cholesterol 186 mg/dL (<200); Estimated GFR 87.37 (mL/min/1.73m2); Glucose 99 mg/dL (74-106); HDL Cholesterol 56 mg/dL (40-60); Potassium 4.6 mmol/L (3.5-5.1); Sodium 149 mmol/L (136-145); Total Protein 7.2 g/dL (6.4-8.2); Triglyceride 103 mg/dL (<150)
== END 2024-03-29 13:31 | disposition home or self-care (01) ==
LOC: NCHCN 13:30
PROVIDERS: PCP Physician Assistant; Visit Provider Physician Assistant
DX: E78.5 Hyperlipidemia, unspecified (principal)
CPT/HCPCS: 80053; 80061; 85027

== ENCOUNTER 2024-07-04 16:31 | Outpatient (CLI) | payer MEDICARE, BC, SELFPAY ==
--- NOTE | 2024-07-04 | DI.RAD_ITS ---
Exam(s) XR CHEST 2V PA LATERAL EXAM: XR CHEST 2V PA LATERAL CLINICAL HISTORY: Persistent cough for several weeks, unspecified asthma, J45.329. TECHNIQUE: 2D digital imaging was performed. COMPARISON: No exams were available for comparison FINDINGS: 2 views: Heart size is normal. The mediastinum is not widened. No infiltrates nor pleural effusions. There appears to be possible bronchiectasis in both lower lobe s. No evidence of pulmonary edema. IMPRESSION: Subtle evidence of possible bronchiectasis in the posterior basal segments of both lower lobes. No c onfluent infiltrates evident. No pleural effusions. DATA REPOSITORY: RADIATION DOSE DELIVERED:
--- OUTSIDE RECORDS SUMMARY | 2024-07-04 16:33 | XMS_ITS | Encounter Summary ---
Author Organization [facility] Address [address] [place] [address] Care Team Providers Care Box Attacher Name Role Phone Unavailable Primary Care Provider Unavailabl e Encounter Details Date Type Department Care Team (Late st Contact Info) Description 06/29/2005 Results Only [facility] - [facility] [address] [place] [address] Cody Mclaughlin MD [address] [place] [address] [address] Social History Tobacco Use Types Packs/Day Years Used Date Smoking Tobacco: Never Assessed Comments Unknown Sex and Gender Information Value Date Recorded Sex Assigned at Not on file Legal Sex Female 18:17 EST Gender Identity Not on file Sexual Orientation [...] ? NEVAEH HOWARD ? Accession #: ? [id number] : ? 1945 (Age: 60) ??F ?Collect Date: ? 06/29/2005 Location: ? [facility] ? Receive Date: ? 07/01/2005 Provider: ?CODY MCLAUGHLIN MD Copy to: ? Specimen/Source: ?ThinPrep Pap Test, Vagina, processed on [employer] ThinPrep Imaging System, with manual evaluation Last [...] End of Report SENTHIL MAHER 06/29/2005 07/01/2005 us Cody Mclaughlin MD PATHOLOGY ORDERABLES Final Resu lt SENTHIL MAHER [address] [place] [address] documented in this encounter Visit Diagnoses Not on filedocumented in this encounter
--- OUTSIDE RECORDS SUMMARY | 2024-07-04 16:33 | XMS_ITS | Encounter Summary ---
Author Organization [facility] Address [address] [place] [address] Care Team Providers Care Ice Cream Vault Worker Name Role Phone Unavailable Primary Care Provider Unavailabl e Encounter Details Date Type Department Care Team (Late st Contact Info) Description 07/09/2022 Lab Requisition [facility] Pathology & Laboratory Medicine - [facility] [address] [place] [address] Outr Resulting Lab, Provider Social History Tobacco [...] Priority Date/Time Associated Diagnosis Comments ZZCOVID-19 TEST [facility] PCR Today 07/08/2022 12:01 EST COVID-19 TESTING Routine 07/08/2022 12:0 1 EST documented in this encounter Results * COVID-19 TEST [facility] PCR (07/08/2022 12:01 EST) Swab 07/08/2022 12:0 1 EST 07/09/2022 19:16 EST us Provider Outr Resulting Lab MICROBIOLOGY - GENER AL ORDERABLES Final Result [facility] [address] [place] [address] * COVID-19 TESTING (07/08/2022 12:01 EST) COVID-19 rt-PCR Result Negative Negative 07/10/2022 11:25 EST [facility] Comment: This test has not [...] was performed using the karen SARS-CoV-2 assay ([employer] on the Karen 6800 System Performing Lab Karen 6800 [facility] 07/10/2022 11:25 EST [facility] Swab 07/08/2022 12:0 1 EST 07/09/2022 19:16 EST us Provider Outr Resulting Lab MICROBIOLOGY - GENER AL ORDERABLES Final Result [facility] [address] [place] [address] documented in this encounter Visit Diagnoses Not on filedocumented in this encounter
--- OUTSIDE RECORDS SUMMARY | 2024-07-04 16:33 | XMS_ITS | Clinical Summary ---
Author Organization [facility] Address [address] [place] [address] Care Team Providers Care Sports Management Internship Name Role Phone Unavailable Primary Care Provider [...] Last Done Comments Hepatitis C Screen 1945 Fall Risk Screening 02/11/2009 RSV Immunization ( o r 60+ Years) (1 - 1-dose 75+ series) 02/11/2019 COVID-19 Vaccine ( season) 2024
--- OUTSIDE RECORDS SUMMARY | 2024-07-04 16:33 | XMS_ITS | Referral Summary ---
Author Organization [facility] Address [address] [place] [address] Care Team Providers Care Die Cutter Apprentice Name Role Phone Unavailable Primary Care Provider [...]
--- OUTSIDE RECORDS SUMMARY | 2024-07-04 16:34 | XMS_ITS | Encounter Summary ---
Author Organization [facility] [place] [address] Care Team Providers Care Revenue Research Analyst Name Role Phone John Winkler Primary Care Provider + [phone] Reason for Visit * Reason Comments Annual Exam Encounter Details Date Type Department Care Team (Late st Contact Info) Description 02/13/2022 10:00 AM EDT Office Visit Dermatology at [address] [place] [address] Abraham Mcdowell MD [address] [facility] [place] [address] Seborrheic keratosis; Nevus; AK (actinic keratosis) Social [...] Care Team (Late st Contact Info) Description 05/14/2025 1:45 PM EST Office Visit Dermatology at [place] [address] [facility] [place] [address] Abraham Mcdowell MD [address], [place] [address] documented as of this encounter Visit Diagnoses Diagnosis Seborrheic keratosis Other seborrheic keratosis Nevus Benign neoplasm of skin, site unspecified [place] (actinic keratosis) Actinic keratosis documented in this encounter Care Teams Revenue Research Analyst Relationship Specialty Start Date End Date John Winkler PA [address] [place] [address] PCP - General Internal Medicine 02/10/21 documented as of this encounter
--- OUTSIDE RECORDS SUMMARY | 2024-07-04 16:34 | XMS_ITS | Encounter Summary ---
Author Organization [facility] Address [address] [place] [address] Care Team Providers Care Bacteriologist Soil Name Role Phone Unavailable Primary Care Provider Unavailabl e Encounter Details Date Type Department Care Team (Late st Contact Info) Description 03/11/2000 Results Only [facility] - Maple conversion [address] [place] [address] Cody Mclaughlin MD [address] [place] [address] [address] [address] Social History Tobacco Use Types Packs/Day Years [...] ? NEVAEH HOWARD ? Accession #: ? [id number] : ? 1945 (Age: 55) ??F ?Collect [...] Document reviewed and electronically signed by: ? Noris Worley, CT(ASCP) ? Report Date: ??03/17/2000 10:47 End of Report SENT[facility] MAE[facility] 03/11/2000 03/15/2000 us Cody Mclaughlin MD PATHOLOGY ORDERABLES Final Resu lt [facility] [address] [place] [address] documented in this encounter Visit Diagnoses Not on filedocumented in this encounter
--- OUTSIDE RECORDS SUMMARY | 2024-07-04 16:34 | XMS_ITS | Encounter Summary ---
Author Organization [facility] [place] [address] Care Team Providers Care Forge Helper Name Role Phone John Winkler Primary Care Provider + [phone] Reason for Visit * Reason Comments Follow-up Encounter Details Date Type Department Care Team (Late st Contact Info) Description 11/18/2021 3:15 PM EDT Office Visit Dermatology at [address] [place] [address] Abraham Mcdowell MD [address], [place] [address] Seborrheic keratosis; Nevus; AK (actinic keratosis) Social [...] 1:45 PM EST Office Visit Dermatology at [place] [address] [place] [address] Abraham Mcdowell MD [address], [place] [address] documented as of this encounter Visit Diagnoses Diagnosis Seborrheic keratosis Other seborrheic keratosis Nevus Benign neoplasm of skin, site unspecified AK (actinic keratosis) Actinic keratosis documented in this encounter Care Teams Forge Helper Relationship Specialty Start Date End Date John Winkler PA [address] [place] [address] PCP - General Internal Medicine 02/10/21 documented as of this encounter
--- OUTSIDE RECORDS SUMMARY | 2024-07-04 16:34 | XMS_ITS | Encounter Summary ---
Author Organization [facility] [place] [address] Care Team Providers Care Rock Crusher Name Role Phone John Winkler Primary Care Provider + [phone] Encounter Details Date Type Department Care Team [...] 1:45 PM EST Office Visit Dermatology at [employer] [address] [place] [phone] Abraham Mcdowell MD [address], [place] [address] documented as of this encounter Visit Diagnoses Not on filedocumented in this encounter Care Teams Rock Crusher Relationship Specialty Start Date End Date John Winkler PA [address] [place] [address] PCP - General Internal Medicine 02/10/21 documented as of this encounter
--- OUTSIDE RECORDS SUMMARY | 2024-07-04 16:34 | XMS_ITS | Encounter Summary ---
Author Organization [facility] [place] [address] Care Team Providers Care Nematology Teacher Name Role Phone John Winkler Primary Care Provider + [phone] Encounter Details Date Type Department Care Team [...] 1:45 PM EST Office Visit Dermatology at [place] [address] [facility] [place] [phone] Abraham Mcdowell MD [address], [place] [address] documented as of this encounter Visit Diagnoses Not on filedocumented in this encounter Care Teams Nematology Teacher Relationship Specialty Start Date End Date John Winkler PA [address] [place] [address] PCP - General Internal Medicine 02/10/21 documented as of this encounter
--- OUTSIDE RECORDS SUMMARY | 2024-07-04 16:34 | XMS_ITS | Encounter Summary ---
Author Organization [facility] [place] [address] Care Team Providers Care Metal Precision Machine Assembler Name Role Phone John Winkler Primary Care Provider + [phone] Reason for Visit * Reason Comments Skin Check Encounter Details Date Type Department Care Team (Late st Contact Info) Description 04/15/2023 3:15 PM EDT Office Visit Dermatology at [address] [place] [address] Abraham Mcdowell MD [address] [facility], [place] [address] Seborrheic keratosis; Nevus Social History Tobacco Use [...] 1:45 PM EST Office Visit Dermatology at [place] [address] [place] [address] Abraham Mcdowell MD [address], [place] [address] documented as of this encounter Visit Diagnoses Diagnosis Seborrheic keratosis Other seborrheic keratosis Nevus Benign neoplasm of skin, site unspecified documented in this encounter Care Teams Metal Precision Machine Assembler Relationship Specialty Start Date End Date John Winkler PA [address] [place] [address] PCP - General Internal Medicine 02/10/21 documented as of this encounter
--- OUTSIDE RECORDS SUMMARY | 2024-07-04 16:34 | XMS_ITS | Encounter Summary ---
Author Organization [facility] Address [address] [place] [address] Care Team Providers Care Leak Gang Supervisor Name Role Phone Unavailable Primary Care Provider Unavailabl e Encounter Details Date Type Department Care Team (Late st Contact Info) Description 01/16/2002 Results Only [facility] - Maple conversion [address] [place] [address] Cody Mclaughlin MD [address] [place] [address] [address] Social History Tobacco Use Types Packs/Day Years [...] ? NEVAEH HOWARD ? Accession #: ? [id number] : ? 1945 (Age: 56) ??F ?Collect Date: ? 01/16/2002 Location: ? [facility] ? Receive Date: ? 01/18/2002 Provider: ?CODY MCLUAGHLIN MD Copy to: ? Specimen/Source: ?ThinPrep Pap [...] End of Report SENT[facility]IL MAHER 01/16/2002 01/18/2002 us Cody Mclaughlin MD PATHOLOGY ORDERABLES Final Resu lt [facility] [address] [place] [address] documented in this encounter Visit Diagnoses Not on filedocumented in this encounter
--- OUTSIDE RECORDS SUMMARY | 2024-07-04 16:34 | XMS_ITS | Clinical Summary ---
Author Organization [facility] Address [address] [facility] [place] [address] Care Team Providers Care Spanish Interpreter/Translator Name Role Phone John Winkler Primary Care Provider [phone] Allergies No known active allergies Medications Medication Sig Dispensed Refills Start Date End Date Status atorvastatin (Lipitor) 20 mg Tablet 12/31/2020 Active montelukast (Singulair) 10 mg Tablet 12/25/2020 Active omeprazole (PriLOSEC) 40 mg Capsule, Delayed Release(E.C.) Take by mouth. 11/25/2020 Active multivitamin (THERAGRAN) Tablet Take 1 tablet by mouth daily. Active Active Problems Problem Noted Date Diagnosed Date Ankle injury 11/18/2021 Trochanteric bursitis, left hip 11/18/2021 Encounters Date Type Department Care Team Description 05/08/2024 2:00 PM EST Office Visit Dermatology at [address] [phone] Abraham Mcdowell MD Seborrheic keratosis; Nevus 05/08/2024 Travel from Last 3 Months Social History Tobacco Use Types Packs/Day Years Used Date Smoking Tobacco: Never Smokeless Tobacco: Never Sex and Gender Information Value Date Recorded Sex Assigned at Not on file Gender Identity Not on file Sexual Orientation Not on file Plan of Treatment Upcoming Encounters Date Type Department Care Team (Late st Contact Info) Description 05/14/2025 1:45 PM EST Office Visit Dermatology at [address] [phone] Abraham Mcdowell MD [address] [place] [address], MEL A DERMATOLOGY [place], [place] [phone] Health Maintenance Due Date Last Done Comments Hepatitis C Screening 02/11/1962 Tetanus/Diphtheria/Pertussis Vaccines (1 - Tdap) 02/11 Pneumoccocal Vaccine: 50+ (1 of 1 - PCV) 02/11/1994 Zoster vaccine (1 of 2) 02/11/1994 Advance Directive 02/11/1999 Bone Density Scan 02/11/2009 RSV Vaccine (1 - 1-dose 75+ series) 02/11/2019 Covid-19 Vaccine (1 - 2023- season) 2024 Influenza (Flu) vaccine (1 o f 1 - Influenza standard series) 02/13/2024 Care Teams Spanish Interpreter/Translator Relationship Specialty Start Date End Date John Winkler PA [address] [place], [place] [id number] PCP - General Internal Medicine 02/10/21
--- OUTSIDE RECORDS SUMMARY | 2024-07-04 16:34 | XMS_ITS | Encounter Summary ---
Author Organization [facility] Address [address] [place] [address] Care Team Providers Care Passenger Screener Name Role Phone Unavailable Primary Care Provider Unavailabl e Encounter Details Date Type Department Care Team (Late st Contact Info) Description 05/27/[address] [facility] - Maple conversion [address] [place] [address] Cody Mclaughlin MD [address] [place] [address] [address] Social History Tobacco Use Types Packs/Day Years [...] ? NEVAEH HOWARD ? Accession #: ? [id number] : ? 1945 (Age: 56) ??F ?Collect [...] End of Report SENT[facility]IL [facility] 05/27/2001 05/31/2001 us Cody Mclaughlin MD PATHOLOGY ORDERABLES Final Resu lt Performing Organization Address City/State/[facility] Co de Phone Number SENTHIL MAHER [address] [place] [address] documented in this encounter Visit Diagnoses Not on filedocumented in this encounter
--- OUTSIDE RECORDS SUMMARY | 2024-07-04 16:34 | XMS_ITS | Encounter Summary ---
Author Organization [facility] [address] Care Team Providers Care Tobacco Stripping Machine Operator Name Role Phone John Winkler Primary Care Provider + [phone] Reason for Visit * Reason Comments Annual Exam Encounter Details Date Type Department Care Team (Late st Contact Info) Description 05/08/2024 2:00 PM EST Office Visit Dermatology at [address] [place] [address] Arbaham Mcdowell MD [address], [place] [address] Seborrheic keratosis; Nevus Social History Tobacco Use Types Packs/Day Years Used Date Smoking Tobacco: Never Smokeless Tobacco: Never Sex and Gender Information Value Date Recorded Sex Assigned at Not on file Gender Identity Not on file Sexual Orientation Not on file documented as of this encounter Progress Notes * Abraham Mcdowell MD - 05/08/2024 2:00 PM EST Problem: 1. History of actinic keratosis right upper lateral lip at vermilion border 2. Follow status post 1 month course of imiquimod cream to lip site September 2021, with excessive reaction 3. 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 He has not noted any particular skin lesions ofconcern today. Physical examination reveals a pleasant 79-year-old woman who has a benign examination of [...] 1:45 PM EST Office Visit Dermatology at [place] [address] [facility] [place] [address] Abraham Mcdowell MD [address], [place] [address] documented as of this encounter Visit Diagnoses Diagnosis Seborrheic keratosis Other seborrheic keratosis Nevus Benign neoplasm of skin, site unspecified documented in this encounter Care Teams Tobacco Stripping Machine Operator Relationship Specialty Start Date End Date John Winkler PA [facility] [address] [place] [address] PCP - General Internal Medicine 02/10/21 documented as of this encounter
--- OUTSIDE RECORDS SUMMARY | 2024-07-04 16:34 | XMS_ITS | Encounter Summary ---
Author Organization [facility] [place] [address] Care Team Providers Care Legal Compliance Officer Name Role Phone John Winkler Primary Care Provider + [phone] Encounter Details Date Type Department Care Team (Latest Contact Info) Description 05/08/2024 Travel Social History Tobacco Use Types Packs/Day [...] 1:45 PM EST Office Visit Dermatology at [place] [address] [facility] [place] [phone] Abraham Mcdowell MD [address], [place] [address] documented as of this encounter Visit Diagnoses Not on filedocumented in this encounter Care Teams Legal Compliance Officer Relationship Specialty Start Date End Date John Winkler PA [address] [place] [address] PCP - General Internal Medicine 02/10/21 documented as of this encounter
--- OUTSIDE RECORDS SUMMARY | 2024-07-04 16:34 | XMS_ITS | Encounter Summary ---
Author Organization [facility] Address [address] [place] [address] Care Team Providers Care Spot Remover Name Role Phone Unavailable Primary Care Provider Unavailabl e Encounter Details Date Type Department Care Team (Late st Contact Info) Description 01/05/2002 Results Only [facility] - Maple conversion [address] [place] [address] Henri Brunson MD [address] [place] [address] Social History Tobacco Use Types [...] ? NEVAEH HOWARD ? Accession #: ? [id number] ? : ? 1945 (Age: 56) ??F [...] has reviewed this case in consultation. ??(Dr. Melgoza)/[facility] Microscopic Description: ? The sections show squamous mucosa with focal vacuolar interface changes and a dense, lichenoid, mixed inflammatory infiltrate. ??In addition, there is superficial dermal fibrosis with granulation tissue type vessels. ??(Dr. Melgoza)/[facility] Document reviewed and electronically signed by: SAFIA [...] SENTHIL MAHER 01/05/2002 01/05/2002 15: 32 EDT us Henri Brunson MD PATHOLOGY ORDERABLES Final Resul t [facility] [address] [place] [address] documented in this encounter Visit Diagnoses Not on filedocumented in this encounter
--- OUTSIDE RECORDS SUMMARY | 2024-07-04 16:34 | XMS_ITS | Encounter Summary ---
Author Organization [facility] [place] [address] Care Team Providers Care Forcer Maker Name Role Phone John Winkler Primary Care Provider + [phone] Reason for Visit * Reason Comments Follow-up Encounter Details Date Type Department Care Team (Late st Contact Info) Description 10/13/2022 3:30 PM EDT Office Visit Dermatology at [address] [place] [address] Abraham Mcdowell MD [address], [place] [address] Seborrheic keratosis; Nevus; AK (actinic keratosis) Social [...] 1:45 PM EST Office Visit Dermatology at [place] [address] [place] [address] Abraham Mcdowell MD [address], [place] [address] documented as of this encounter Visit Diagnoses Diagnosis Seborrheic keratosis Other seborrheic keratosis Nevus Benign neoplasm of skin, site unspecified AK (actinic keratosis) Actinic keratosis documented in this encounter Care Teams Forcer Maker Relationship Specialty Start Date End Date John Winkler PA [address] [place] [address] PCP - General Internal Medicine 02/10/21 documented as of this encounter
--- OUTSIDE RECORDS SUMMARY | 2024-07-04 16:35 | XMS_ITS | Encounter Summary ---
Author Organization [facility] [place] [address] Care Team Providers Care Practice Specialist Name Role Phone John Winkler Primary Care Provider [phone] Encounter Details Date Type Department Care Team (Late st Contact Info) Description 09/18/2021 Refill Dermatology at [address] [phone] Rebecca Dueñas, RACING DRIVER Social History Tobacco Use Types Packs/Day Years [...] 1:45 PM EST Office Visit Dermatology at [address] [phone] Abraham Mcdowell MD [address] [facility], MEL A DERMATOLOGY [place], [place] [address] documented as of this encounter Visit Diagnoses Not on filedocumented in this encounter Care Teams Practice Specialist Relationship Specialty Start Date End Date John Winkler PA [address] [facility] [address] [place] [address] PCP - General Internal Medicine 02/10/21 documented as of this encounter
--- OUTSIDE RECORDS SUMMARY | 2024-07-04 16:35 | XMS_ITS | Encounter Summary ---
Author Organization [facility] [place] [address] Care Team Providers Care Cattle Rancher Name Role Phone John Winkler Primary Care Provider + [phone] Reason for Visit * Reason Comments Skin Lesion Encounter Details Date Type Department Care Team (Late st Contact Info) Description 09/02/2021 4:15 PM EDT Office Visit Dermatology at [address] [place] [address] Abraham Mcdowell MD [address], [place] [address] Seborrheic keratosis; Nevus Social History Tobacco Use [...] 1:45 PM EST Office Visit Dermatology at [place] [address] [place] [address] Abraham Mcdowell MD [address], [place] [address] documented as of this encounter Visit Diagnoses Diagnosis Seborrheic keratosis Other seborrheic keratosis Nevus Benign neoplasm of skin, site unspecified documented in this encounter Care Teams Cattle Rancher Relationship Specialty Start Date End Date John Winkler PA [address] [place] [address] PCP - General Internal Medicine 02/10/21 documented as of this encounter
--- OUTSIDE RECORDS SUMMARY | 2024-07-04 16:35 | XMS_ITS | Encounter Summary ---
Author Organization [facility] Address [facility] [place] [address] Care Team Providers Care Trade Clerk Name Role Phone John Winkler Primary Care Provider [phone] Encounter Details Date Type Department Care Team (Latest Contact Info) Description 09/02/2021 10:27 PM EDT - 09/02/2021 11:59 PM EDT [place] [phone] Discharge Disposition: Home Social History Tobacco Use [...] 1:45 PM EST Office Visit Dermatology at [place] [address] [place] [address] Abraham Mcdowell MD [address], [place] [address] documented as of this encounter Procedures Procedure Name Priority Date/Time Associated Diagnosis Comments SURGICAL PATHOLOGY REPORT Routine 09/02/2021 12:00 PM EDT documented in this encounter Results * Surgical Pathology Report (09/02/2021 12:00 PM EDT) Final Diagnosis [id number] ? Location: [facility] The signing pathologist has (i) examined the relevant preparation(s) for the specimen(s) and (ii) rendered or confirmed the diagnosis(es). . ?Surgical Pathology DIAGNOSIS Right upper lip at mary border, shave: - ??Actinic keratosis (see Discussion) Electronically signed by: ?Peter MARTINEZ, PhD, Tawana Verified: ??09/08/2021 13:16 ??Dermatopatholog ist Performed at: ??-[facility] Dept. of Pathology, [place], [place] DISCUSSION The biopsy shows acanthosis with [...] (not provided) CLINICAL INFORMATION Pearly papule on Long border, above non-healing (x weeks) fissure of lip below it. Rule out BCC. SPECIMEN PROCESSING A - Labeled/Fixative: Patient demographics, formalin. Quantity/Size: ??Single, 0.7 x 0.4 x 0.1 cm. Tissue Description: Sánchez-wallace skin shave with a 0.4 x 0.3 cm pink papule. Sections/Processi ng: Inked, trisected and entirely submitted in 1 cassette labeled A1. ??jnr 09/08/2021 1:[address] [facility] SPECIMEN FROM SKIN / Unknown 09/02/2021 12:00 PM EDT 09/02/2021 12:00 PM EDT Abraham Mcdowell MD PATHOLOGY/CYTOLOGY O RDERALINDA [facility] [place] [address] documented in this encounter Visit Diagnoses Not on filedocumented in this encounter Care Teams Trade Clerk Relationship Specialty Start Date End Date John Winkler PA [address] [place] [address] PCP - General Internal Medicine 02/10/21 documented as of this encounter
--- OUTSIDE RECORDS SUMMARY | 2024-07-04 16:35 | XMS_ITS | Encounter Summary ---
Author Organization [facility] Address [address] [facility] [place] [address] Care Team Providers Care Intranet Support Name Role Phone John Winkler Primary Care Provider + [phone] Encounter Details Date Type Department Care Team (Late st Contact Info) Description 10/13/2021 Telephone Dermatology at [address] [place] [address] Angeles Martinez RN Social History [...] 1:45 PM EST Office Visit Dermatology at [place] [address] [facility] [place] [address] Abraham Mcdowell MD [address], [place] [address] documented as of this encounter Visit Diagnoses Not on filedocumented in this encounter Care Teams Intranet Support Relationship Specialty Start Date End Date John Winkler PA [address] [place] [address] PCP - General Internal Medicine 02/10/21 documented as of this encounter
--- OUTSIDE RECORDS SUMMARY | 2024-07-04 16:35 | XMS_ITS | Encounter Summary ---
Author Organization [facility] Address [facility] [place] [address] Care Team Providers Care Welder/Installer Name Role Phone John Winkler Primary Care Provider + [phone] Encounter Details Date Type Department Care Team (Late st Contact Info) Description 09/10/2021 Telephone Dermatology at [address] [address] Rebecca Dueñas LPN Social History [...] 1:45 PM EST Office Visit Dermatology at [address] [address] Abraham Mcdowell MD [address] [facility], MEL A DERMATOLOGY [place], [place] [address] documented as of this encounter Visit Diagnoses Not on filedocumented in this encounter Care Teams Welder/Installer Relationship Specialty Start Date End Date John Winkler PA [address] [place] [address] PCP - General Internal Medicine 02/10/21 documented as of this encounter
--- OUTSIDE RECORDS SUMMARY | 2024-07-04 16:35 | XMS_ITS | Encounter Summary ---
Author Organization [facility] [place] [address] Care Team Providers Care Screen Printing Equipment Setter Name Role Phone John Winkler Primary Care Provider + [phone] Reason for Visit * Reason Comments Follow-up Encounter Details Date Type Department Care Team (Late st Contact Info) Description 09/18/2021 3:15 PM EDT Office Visit Dermatology at [address] [place] [address] Abraham Mcdowell MD [address], [place] [address] [place] (actinic keratosis) Social History Tobacco Use [...] having used what sounds like 5-FU in [place] from her then banjo repairer with fairlyvigorous reaction. I reassured her that this reaction should not be so pronounced 4. Return to clinic here in 2 months for repeat check. CC: RAND Jordan documented in this encounter Plan of Treatment Upcoming Encounters Date Type Department Care Team (Late st Contact Info) Description 05/14/2025 1:45 PM EST Office Visit Dermatology at [place] [address] [place] [address] Abraham Mcdowell MD [address], [place] [address] documented as of this encounter Visit Diagnoses Diagnosis AK (actinic keratosis) Actinic keratosis documented in this encounter Care Teams Screen Printing Equipment Setter Relationship Specialty Start Date End Date John Winkler PA [address] [place] [address] PCP - General Internal Medicine 02/10/21 documented as of this encounter
--- OUTSIDE RECORDS SUMMARY | 2024-07-04 16:35 | XMS_ITS | Encounter Summary ---
Author Organization [facility] [place] [address] Care Team Providers Care Marketing Communications Specialist Name Role Phone John Winkler Primary Care Provider + [phone] Reason for Visit * Reason Comments Skin Check Encounter Details Date Type Department Care Team (Late st Contact Info) Description 02/10/2021 3:45 PM EDT Office Visit Dermatology at [address] [place] [address] Abraham Mcdowell MD [address], [place] [address] Seborrheic keratosis; Nevus Social History Tobacco Use [...] moved with her Tomasz to live in [facility] for many years. They were both followed there regularly by a skip load driver. They have now returned to the [facility] and lives in [place]. Physical examination reveals a pleasant 75 woman [...] 1:45 PM EST Office Visit Dermatology at [place] [address] [facility] [place] [address] Abraham Mcdowell MD [address], [place] [address] documented as of this encounter Visit Diagnoses Diagnosis Seborrheic keratosis Other seborrheic keratosis Nevus Benign neoplasm of skin, site unspecified documented in this encounter Care Teams Marketing Communications Specialist Relationship Specialty Start Date End Date John Winkler PA [address] [place] [address] PCP - General Internal Medicine 02/10/21 documented as of this encounter
== END 2024-07-04 16:51 ==
LOC: DI 16:32
PROVIDERS: PCP Physician Assistant; Visit Provider Physician Assistant
DX: J45.909 Unspecified asthma, uncomplicated (principal)
CPT/HCPCS: 71046

== ENCOUNTER 2024-08-03 00:46 | Outpatient (CLI) | payer MEDICARE, BC, SELFPAY ==
--- NOTE | 2024-08-03 | DI.MAMMO_ITS ---
Exam(s) MAMMO SCREENING EXAM: MAMMO SCREENING CLINICAL HISTORY: Screening, Z12.31 TECHNIQUE: Bilateral full field digital CC and MLO mammographic images were obtained with 3D tomosyn thesis and utilizing computer aided detection (CAD). COMPARISON: Available for comparison. FINDINGS: Masses/Architectural Distortion: None seen. Microcalcifications: No suspicious pleomorphic-type are seen. Skin Thickening/Nipple Retraction: None. IMPRESSION: 1. No significant interval change with no specific features of malignancy noted. 2. Unless there is more urgent need, screening mammography is recommended, as per [employer] guidelines. BI-RADS Category 1 - Negative Breast Density - Category B - Scattered areas of fibroglandular density Breast density category C or D implies that the patient has dense breast tissue. Dense breast tissue is very common and is not abnormal but dense breast tissue can make it harder to find cancer on a ma mmogram. Also, dense breast tissue may increase their breast cancer risk. This information about the result of the mammogram report was provided to the patient to raise their awareness. Use this report when you speak with the patient about their risks for breast cancer, which includes their family hist ory. At that time, you may recommend for more screening tests (Ultrasound or MRI) as they might be us eful based on their risk. A negative radiographic report should not delay biopsy if a dominant or clinically suspicious mass is present. Up to ten percent of cancers are not identified on mammography. A negative report may reinforce clinical impression. Adenosis and dense breasts may obscure an underlying neoplasm. False positive reports average 6 to 10%. Patient will receive a letter notifying them of these results.
== END 2024-08-03 01:06 ==
PROVIDERS: PCP Physician Assistant; Visit Provider Physician Assistant
DX: Z12.31 Encounter for screening mammogram for malignant neoplasm of breast (principal); R92.323 Mammographic fibroglandular density, bilateral breasts
CPT/HCPCS: 77063; 77067

== ENCOUNTER → 2024-08-17 08:08 | Outpatient (BNVA) | payer MEDICARE, SELFPAY | PROVIDERS: PCP Physician Assistant; Referring Provider Physician Assistant; Visit Provider Physician Assistant Surgical | DX: R05.3 Chronic cough (principal); R01.1 Cardiac murmur, unspecified | CPT/HCPCS: 99215 ==

== ENCOUNTER 2024-09-07 03:04 | Outpatient (CLI) | payer MEDICARE, SELFPAY ==
[2024-09-07] MEDS: Inhaler, Assist Device 1 EACH MC (12:48)
[2024-09-07] MEDS: Methacholine 100 MG VIAL IH (12:48)
[2024-09-07] MEDS: Levalbuterol HFA 15 GM INH 4 PUFF IH (12:48)
--- NOTE | 2024-09-12 16:05 | W.PFT ---
Date of service: 09/07/24 Time of Service: 10:02 Pulmonary Function Test Result Indications: Cough Interpretation Spirometry: No baseline airflow limitation. There was an 11% decrease in FEV1 with administration of 16mg/mL methacholine. Lung Volumes: Normal lung volumes Diffusion Capacity: Normal diffusion Airway Pressure: Normal airways resistance Impression Normal pulmonary function testing with a negative methacholine challenge. Clinical Correlation therefore is recommended.
== END 2024-09-07 03:05 | disposition home or self-care (01) ==
LOC: RT 03:04
PROVIDERS: PCP Physician Assistant; Visit Provider Student in an Organized Health Care Education/Training Program
DX: R05.9 Cough, unspecified (principal)
CPT/HCPCS: 94060; 94070; 94726; 94729; J7674

== ENCOUNTER → 2024-09-12 07:40 | Outpatient (BNVA) | payer MEDICARE, SELFPAY | PROVIDERS: PCP Physician Assistant; Referring Provider Physician Assistant; Visit Provider Physician Assistant Surgical | DX: J68.3 Other acute and subacute respiratory conditions due to chemicals, gases, fumes and vapors (principal); K21.9 Gastro-esophageal reflux disease without esophagitis | CPT/HCPCS: 99214 ==

== ENCOUNTER → 2024-12-13 07:43 | Outpatient (BNVA) | payer MEDICARE, SELFPAY | PROVIDERS: PCP Physician Assistant; Referring Provider Physician Assistant; Visit Provider Physician Assistant Surgical | DX: J68.3 Other acute and subacute respiratory conditions due to chemicals, gases, fumes and vapors (principal); K21.9 Gastro-esophageal reflux disease without esophagitis | CPT/HCPCS: 99214 ==

== ENCOUNTER 2025-01-29 20:56 | Outpatient (REF) | payer MEDICARE, SELFPAY | END 2025-01-29 20:57 | disposition home or self-care (01) | LOC: LBN 20:56 | PROVIDERS: PCP Physician Assistant; Visit Provider Physician Assistant Medical | DX: L08.9 Local infection of the skin and subcutaneous tissue, unspecified (principal) | CPT/HCPCS: 87077; 87070; 87186; 87205 ==

== ENCOUNTER → 2025-04-16 14:40 | Outpatient (BNVA) | payer MEDICARE, SELFPAY | PROVIDERS: PCP Physician Assistant; Referring Provider Physician Assistant; Visit Provider Physician Assistant Surgical | DX: J68.3 Other acute and subacute respiratory conditions due to chemicals, gases, fumes and vapors (principal); K21.9 Gastro-esophageal reflux disease without esophagitis; R05.9 Cough, unspecified | CPT/HCPCS: 99214 ==

== ENCOUNTER 2025-04-25 10:27 | Outpatient (REF) | payer MEDICARE, SELFPAY ==
[2025-04-25 16:21] LABS: HCT 45.0 % (36.0-46.0); HGB 14.2 g/dL (11.2-15.7); MCH 26.7 pg (27.0-33.0); MCHC 31.6 % (32.0-36.0); MCV 85 fL (80-95); RBC 5.32 10^6/uL (3.93-5.22); RDW 12.8 % (11.7-14.6); RDW-SD 39.3 fL; WBC 8.16 10^3/uL (4.4-10.8)
[2025-04-25 17:09] LABS: Platelet Count 227 10^3/uL (130-400)
[2025-04-25 18:20] LABS: ALT 18 U/L (10-49); AST 23 U/L (<34); Albumin 4.1 g/dL (3.4-5.0); Alkaline Phosphatase 88 U/L (46-116); Anion Gap 6.6 mmol/L (3-11); BUN 19 mg/dL (9-23); Bilirubin, Total 1.10 mg/dL (0.2-1.2); CO2 25.4 mmol/L (20.0-31.0); Calcium 9.1 mg/dL (8.3-10.6); Chloride 111 mmol/L (98-107); Cholesterol 170 mg/dL (<200); Glucose 125 mg/dL (74-106); HDL Cholesterol 51 mg/dL (>40); Potassium 4.4 mmol/L (3.5-5.1); Sodium 143 mmol/L (136-145); Total Protein 7.2 g/dL (5.7-8.2)
== END 2025-04-25 10:28 | disposition home or self-care (01) ==
LOC: NCHCN 10:27
PROVIDERS: PCP Physician Assistant; Visit Provider Physician Assistant
DX: E78.5 Hyperlipidemia, unspecified (principal); K21.9 Gastro-esophageal reflux disease without esophagitis
CPT/HCPCS: 80053; 80061; 85027

== ENCOUNTER → 2025-04-26 02:37 | Outpatient (CLI) | payer MEDICARE, SELFPAY ==
--- NOTE | 2025-04-26 10:21 | DI.CT_ITS ---
Exam(s) CT CHEST WO EXAM: CT CHEST WO CLINICAL HISTORY: chronic cough,r05.9. TECHNIQUE: Imaging protocol: Axial computed tomography images were obtained and coronal and sagittal reformatted images were created and reviewed. Computer aided detection (CAD) was utilized. CONTRAST MATERIAL: Noncontrast COMPARISON: CR XR CHEST 2V PA LATERAL from 07/04/2024 FINDINGS: Pulmonary parenchyma: Mild ground-glass and bilateral tree-in-bud opacities in both upper and lower lobes. No consolidation. No suspicious mass Interstitial changes: Mildly increased interstitial changes, greater peripherally. Emphysema: None. Tracheobronchial tree: No mucous plugging. No bronchiectasis . Pleura: No effusion or pneumothorax. Heart: The heart is mildly dilated. The coronary arteries show moderate to severe calcifications. Aorta: Thoracic aorta non-dilated. Mild atherosclerotic changes. Calcification at aortic annulus. Lymph nodes: No enlarged lymph nodes. Bones: Degenerative changes are seen. No evidence of compression fracture. Upper abdomen: Unremarkable. Soft tissues: Unremarkable. IMPRESSION: Mild bilateral upper and lower lobe somewhat diffuse ground-glass opacities and tree-in-bud opacities may be secondary to infectious or inflammatory causes. No focal area of consolidation or mass. No bronchiectasis or mucus plugging. RADIATION DOSE DELIVERED: Total DLP Total DLP DATA REPOSITORY: All CT scans at this facility are submitted to the National Radiology Data Registry (NRDR) Dose Index Registry (DIR) with the [employer] (ACR). RADIATION OPTIMIZATION: All CT scans at this facility use at least one of these dose optimization techniques: automated exposure control; mA and/or kV adjustment per patient size (includes targeted exams where dose is matched to clinical indication); or iterative reconstruction.
== END ==
PROVIDERS: PCP Physician Assistant; Visit Provider Physician Assistant Surgical
DX: R05.9 Cough, unspecified (principal)
CPT/HCPCS: 71250

== ENCOUNTER 2025-04-27 09:29 | Outpatient (CLI) | payer MEDICARE, SELFPAY ==
[2025-04-27 10:39] LABS: Abs Immature Grans 0.02 10^3/uL (0.0-0.06); HCT 46.0 % (36.0-46.0); HGB 14.8 g/dL (11.2-15.7); Immature Grans % 0.2 %; MCH 27.3 pg (27.0-33.0); MCHC 32.2 % (32.0-36.0); MCV 85 fL (80-95); MPV 12.7 fL (8.0-11.0); Platelet Count 228 10^3/uL (130-400); RBC 5.43 10^6/uL (3.93-5.22); RDW 12.9 % (11.7-14.6); RDW-SD 39.4 fL; WBC 8.48 10^3/uL (4.4-10.8)
[2025-04-30 10:53] LABS: Scl 70 Antibodies, IgG <0.2 U; Sm (Smith) Ab, IgG <0.2 U
[2025-04-30 13:06] LABS: RNP Ab, IgG <6.0 CU (<20.0); Ro60 Ab, IgG <7.0 CU (<20.0); SS-A/Ro, IgG <2.3 CU (<20.0); SS-B (La) Ab, IgG <3.3 CU (<20.0)
[2025-04-30 13:15] LABS: Fungitell Qualitative Negative (Negative); Fungitell Quantitative Value <31 pg/mL (<60 pg/mL)
== END 2025-04-27 09:30 | disposition home or self-care (01) ==
LOC: LBO 09:30
PROVIDERS: PCP Physician Assistant; Visit Provider Physician Assistant Surgical
DX: J84.9 Interstitial pulmonary disease, unspecified (principal); J45.909 Unspecified asthma, uncomplicated; R05.9 Cough, unspecified; R91.8 Other nonspecific abnormal finding of lung field; J47.9 Bronchiectasis, uncomplicated
CPT/HCPCS: 36415; 83516; 86200; 86235; 87449; 82785; 85025; 86038; 86225; 86431

== ENCOUNTER → 2025-05-04 02:39 | Outpatient (CLI) | payer MEDICARE, SELFPAY ==
--- NOTE | 2025-05-04 11:25 | DI.RAD_ITS ---
Exam(s) RF BARIUM SWALLOW EXAM: RF BARIUM SWALLOW CLINICAL HISTORY: GASTROESOPHAGEAL REFLUX DISEASES W/O ESOPHAGITIS, K21.9 TECHNIQUE: 2D and realtime digital imaging was performed. CONTRAST MATERIAL: Thick and thin barium and barium tablet were administered. COMPARISON: CT CT CHEST WO from 04/26/2025 FINDINGS: The PA and lateral chest films show normal heart size there are mildly increased interstitial changes. The lateral gi technician view of the neck is unremarkable shows degenerative changes at C5-6 and C6-7. Esophagus: The patient swallowed barium without difficulty. Noevidence for mucosal erosions. Nofold thickening. No mass is visible. Nostricture. There is a tiny Zenker diverticulum. Motility: There is a normal primary stripping wave. No tertiary contractions were noted. There is a mildly prominent cricopharyngeus impression. There is a small sliding hiatal hernia. Gastroesophageal reflux was observed during the exam. IMPRESSION: Small sliding hiatal hernia and gastroesophageal reflux. Mildly prominent cricopharyngeus impression. Tiny Zenker diverticulum. RADIATION DOSE DELIVERED: Rupeshr=15.3 mGy
[2025-05-04] MEDS: Barium Sulfate 700 MG TAB PO (11:30)
[2025-05-04] MEDS: Simethicone/Sod Bicarb/Cit Ac, 4 gram PACKET 1 PACKET PO (11:31)
[2025-05-04] MEDS: Barium Sulfate 98% W/W 140 ML BTL PO (11:32)
[2025-05-04] MEDS: Barium Sulfate 60% W/V 355 ML BTL PO (11:33)
== END ==
LOC: DI 02:39
PROVIDERS: PCP Physician Assistant; Visit Provider Physician Assistant
DX: K21.9 Gastro-esophageal reflux disease without esophagitis (principal); J39.2 Other diseases of pharynx; K44.9 Diaphragmatic hernia without obstruction or gangrene
CPT/HCPCS: 74221; J3490

== ENCOUNTER → 2025-05-16 10:25 | Outpatient (BNVA) | payer MEDICARE, SELFPAY | PROVIDERS: PCP Physician Assistant; Referring Provider Physician Assistant; Visit Provider Internal Medicine Pulmonary Disease | DX: R05.3 Chronic cough (principal); R91.8 Other nonspecific abnormal finding of lung field | CPT/HCPCS: 99214 ==

== ENCOUNTER 2025-05-28 09:25 | Day surgery (SDC) | payer MEDICARE, SELFPAY ==
--- NOTE | 2025-05-27 12:12 | W.ANESPRE ---
General Info Date of Service Date Performed: 05/28/25 Height: 5 ft 1 in Weight: 71.668 kg Body Mass Index (BMI): 29.8 Surgical Procedure: Operation Date: 05/28/25 11:25 Proposed Procedure Side Surgeon p Bronchoscopy Moises Tejada MD Meds Allergies and Home Medications Allergies Allergy/AdvReac Type Severity Reaction Status Date / Time sulfadiazine Allergy Unknown other Verified 05/28/25 09:47 Home Medication ?Medication ?Instructions ?Recorded simvastatin 10 mg tablet 10 mg PO DAILY 05/21/20 omeprazole 40 mg capsule,delayed 40 mg PO DAILY 11/25/20 release cholecalciferol (vitamin D3) 10 10 mcg PO DAILY 01/26/24 mcg (400 unit) capsule montelukast 10 mg tablet 10 mg PO DAILY 03/02/24 albuterol sulfate 2.5 mg/3 mL 2.5 mg inhalation Q6H 08/09/24 (0.083 %) solution for nebulization atorvastatin 20 mg tablet 20 mg PO DAILY 08/09/24 ipratropium bromide 21 mcg (0.03 2 spray intranasal BID 30 days #30 09/12/24 %) nasal spray mL benzonatate 100 mg capsule 100 mg PO TID PRN cough #90 caps 04/16/25 Current Visit Medications: Current Medications Generic Name Dose Route Start Last Admin Trade Name Freq PRN Reason Stop Dose Admin Albuterol Sulfate 2.5 mg 05/28/25 06:00 Albuterol 2.5 Mg/3 Ml Inh Soln Vial UPD 05/28/25 23:59 TODAY JANE Ringer's Solution 1,000 mls @ 30 mls/hr 05/28/25 06:00 IV 05/28/25 23:59 INFUSION JANE Lidocaine HCl 2 ml 05/28/25 06:00 Lidocaine 2% Pres-Free 2 Ml Vial IJ 05/28/25 23:59 TODAY JANE Sodium Chloride 0 ml 05/28/25 06:00 Normal Saline Flush 10 Ml Syr IV 05/28/25 23:59 PRN PRN Sodium Chloride 0 ml 05/28/25 06:00 Normal Saline 10 Ml Vial IJ 05/28/25 23:59 DIRECTED PRN Sterile Water 0 ml 05/28/25 06:00 Water,Injection,Sterile 10 Ml Vial IJ 05/28/25 23:59 DIRECTED PRN PFSH Active Problems Active Problems: Problem Status Onset Code Pulmonary infiltrates Acute R91.8 Bronchiectasis Acute J47.9 Abnormal finding on lung imaging Acute R91.8 Cough Acute R05.9 Heart murmur Acute R01.1 Diverticulosis of large intestine Acute K57.30 Atrophic vaginitis Acute N95.2 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, 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 Osteopenia Acute M85.80 Gastroesophageal reflux disease Chronic K21.9 Electrocardiogram abnormal Acute R94.31 Pain in right wrist Acute M25.531 De Quervain's tenosynovitis, right Acute M65.4 Closed head injury with brief loss of consciousness Acute S06.9X9A Abrasion of left knee Acute S80.212A Contusion of left hip Acute S70.02XA Abrasion of face Acute S00.81XA Contusion of face Acute S00.83XA Ankle injury Acute S99.919A Trochanteric bursitis, left hip Acute M70.62 Medical History Medical History Hx of hyperlipidemia Surgical History Surgical History History of ankle surgery History of hysterectomy Tobacco Smoking/Tobacco Use Status: Never Passive smoking exposure: No Second hand exposure: Yes (As a child) Alcohol Alcohol Intake: current Alcohol intake frequency: 0-2 drinks per day Alcohol type: wine Substance Use Substance use type: does not use Vital Signs and Lab Results Vital Signs Most Recent Vital Signs in EMR: Temp Pulse Resp BP Pulse Ox 36.2 C L 66 20 144/131 H 97 05/28/25 09:42 05/28/25 11:18 05/28/25 09:42 05/28/25 09:42 05/28/25 09:42 Imaging and Studies Imaging and Studies Study information below may be from another EMR and interpreted by another provider. Please see original notes in EMR for more complete details. Stress Test Summary: 2019:Non optimal exercise tolerance, non diagnostic ST depression. Echocardiogram Summary: 04/2018:EF 55%Mile MR, Mild Pulmonary Function Summary: 09/12/24 Indications: Cough Interpretation Spirometry: No baseline airflow limitation. There was an 11% decrease in FEV1 with administration of 16mg/mL methacholine. Lung Volumes: Normal lung volumes Diffusion Capacity: Normal diffusion Airway Pressure: Normal airways resistance Impression Normal pulmonary function testing with a negative methacholine challenge. Clinical Correlation therefore is recommended. Anesthesia Assessment and Plan Anesthesia History Personal History: No History of Anesthesia Complications Family History: No Family History of Anesthesia Complications Exercise Tolerance Exercise Tolerance: Metabolic Equivalents<4 Pertinent Negatives Pertinent Negatives: No Symptoms of GERD Cardiac & Pulmonary Exam Cardiac Exam: Normal S1/S2 Heart Sounds and Heart Murmur Present Pulmonary Exam: Clear Bilateral Breath Sounds Implantable Cardiac Device Does patient have a Pacemaker or an ICD?: No Airway Exam Known Difficult Airway: No Mallampati Class: 2 Mouth Opening: Normal (> 3cm) Thyromental Distance: Less than 3 cm Neck Range of Motion: Full ROM Neck Circumference: Normal Teeth Condition: Normal Dentition ASA Classification ASA Score: ASA 3 Emergency Case?: No NPO Status NPO Status: NPO Clears >2 hours, Solids >8 hours Anesthesia Plan Resuscitation Status: Full Code Anesthesia Technique: General Anesthesia Airway Planned: LMA Monitors Used: Standard Monitors
[2025-05-28] VITALS (25 sets, daily range): BP systolic 93–150; BP diastolic 44–131; PULSE 55–94; RESP 11–25; TEMP 36.2–37; O2SAT 88–99; BMI 29.8
[2025-05-28] MEDS: Lactated Ringers 1,000 ML 30 ML IV (10:01)
[2025-05-28] MEDS: Albuterol 2.5 MG/3 ML INH SOLN VIAL UPD (11:02)
[2025-05-28] MEDS: Lidocaine 2% Pres-Free 2 ML VIAL IJ (11:02)
--- NOTE | 2025-05-28 11:14 | ROE_ITS ---
Operative Note Operative Note PRE-OP DIAGNOSIS: Pulmonary infiltrates, cough PROCEDURE: Bronchoscopy with BAL SURGEON: Moises Tejada ANESTHESIA TYPE: General LMA/ETT (Under the direction the anesthesiology team and as per anesthesia record) Refer to Anesthesia Record PATHOLOGY: other (Bronchoalveolar lavage was obtained in the posterior segment of the right upper lobe, and inferior segment of the lingula. Samples were sent for bacterial/fungal/afb cultures, cell count, cytopathology and aspergillus Ag testing. Biopsies taken: none) Indications: Diagnosis of a persistent cough and pulmonary infiltrates Procedure Description: The risks (including bleeding, respiratory failure, and pneumothorax), benefits, and alternatives of the procedure were discussed with the patient and consent was obtained.? A Time Out was held and the above information confirmed. Following the induction of general anesthesia, the patient was ventilation through an LMA. The bronchoscope was passed through the LMA. The vocal cords were visualized and lidocaine was topically placed onto the cords. The cords w ere normal. The scope was then passed into the trachea.?Additional lidocaine was used topically.? A full endobronchial examination was performed.? There were mild endobronchial secretions in the right main stem bronchus. Otherwise the airways were clear. No endobronchial lesions were seen. 70 mL of saline was injected into the posterior segment of the RUL and 15 mL was aspirated. The fluid appeared colorless/opaque 50 mL of saline was injected into the inferior segment of the lingula and 20 mL was aspirated. The fluid appeared brown/opaque The Patient was taken to the Endoscopy Recovery area in satisfactory condition. Date of Procedure: 05/28/25
--- NOTE | 2025-05-28 12:06 | PAPNONF_PTH ---
PATIENT: Nevaeh Howard LOC: [facility] U#:[id number] AGE/SX: 80/F ROOM: RE05/28/[address]: Moises Tejada : 1945 BED: DIS: 05/28/2025 SPEC #: [id number] RECD: 05/28/25 18:12 STATUS: LIZBETH REQ #: [id number] KALLIE: 05/28/25 12:[address]: Moises Tejada DEPT: [facility] Cytology RECD BY: Amanda Xavier ENTERED: 05/28/25 18:13 SP TYPE: DAYRON JO DR: John Winkler Tissues: 1 - BODY FLUID CYTO(NOT S/U/N/EM)[facility] 2 - BODY FLUID CYTO(NOT S/U/N/EM)[facility] Procedures: BODY FLUID CYTO(NOT SPU/UR/NIP/ENDOM)[facility] Comments: [id number] (BOTH SPECIMENS SENT FRESH) (REFRIGERATED)
[2025-05-28] MEDS: Lidocaine 1% Pres-Free W/EPI 1/200,000 10 ML VIAL (12:10)
[2025-05-28] MEDS: Albuterol/Ipratropium 3 ML UPD VIAL UPD (12:30)
--- NOTE | 2025-05-28 13:06 | W.ANESPOSTOP ---
Postoperative Evaluation Date, Time and Location Date Performed: 05/28/25 Time Performed: 13:06 Patient Location: PACU Vital Signs Most Recent Imported Vital Signs: Most Recent Vital Signs Temp Pulse Resp BP Pulse Ox 37.0 C 84 18 123/44 L 98 05/28/25 12:56 05/28/25 13:00 05/28/25 13:00 05/28/25 12:56 05/28/25 13:00 Pain Score Most Recent Pain Score: Most Recent Pain Score Pain Level 0 05/28/25 09:42 Assessment Mental Status: Awake (Alert & Oriented to Patient Baseline) Airway and Respiratory Function: Patent airway with normal (patient baseline) respiratory exam Cardiovascular Function: Hemodynamically Stable Hydration Status: Adequately Hydrated Nausea & Vomiting: No Nausea or Vomiting Pain: Pt. Denies Any Pain Peripheral Nerve Block: Patient did not receive a nerve block
--- NOTE | 2025-05-28 14:45 | RT.EKG_ITS ---
APPROVED REPORT Exam: Resting ECG Reason for Exam: Chest Pain Patient Location: O HR:78 bpm ECG Measurements Heart Rate 78 AXIS WY 159 P 50 QRSd 87 QRS -19 QT 377 T 68 QTc 429 Conclusion Sinus rhythm...normal P axis, V-rate 60- 99 LVH with secondary repolarization abnormality...multi-LVH criteria, abnrm ST-T Anterior infarct, old...Q >40mS, abnormal ST-T, V2-V5
--- NOTE | 2025-05-28 15:10 | DI.RAD_ITS ---
Exam(s) XR PORTABLE CHEST AP EXAM: XR PORTABLE CHEST AP CLINICAL HISTORY: Poor oxygenation saturation TECHNIQUE: 2D digital imaging was performed. COMPARISON: CR XR CHEST 2V PA LATERAL from 07/04/[address] CHEST WO from 04/26/2025 CR,RF RF BARIUM SWALLOW from 05/04/2025 FINDINGS: LUNGS: Increased interstitial markings and prominence of the pulmonary vasculature which could indicate mild CHF. No focal area of consolidation. No pleural abnormality seen. HEART: Mildly enlarged. AORTA: Mildly tortuous. BONES: Unremarkable for age. Soft tissues: Unremarkable. IMPRESSION: Increased interstitial markings compared with the previous exam which is suspicious for mild CHF. DATA REPOSITORY: RADIATION DOSE DELIVERED:
[2025-05-28 22:50] LABS: Eosinophils Fluid Relative 8 % ((See Note)); Lymphocytes Fluid Relative 8 % ((See Note)); Mono/Macrophage Fluid Relative 52 % ((See Note)); Neutrophils Fluid Relative 28 % ((See Note)); Other Cells Fluid Relative 4 % ((See Note))
--- NOTE | 2025-05-29 08:45 | PDOC.ANES ---
Date of service: 05/28/25 Time of Service: 15:45 Anesthesia Note Report Anesthesia Note: Pt. presented today for procedure with symptoms of cough and chest pain, which she states is mostly normal for her and is part of the reason for her procedure today. We discussed previous echo in 2018 and stress test in 2019 and discussed need for updated echo given mild /Mild MR findings then. She states she is always easily short of breath, but no other changes. She underwent bronchoscopy with normal course in PACU and requiring low flow oxygen NC. DSU asked me to evalaute patient given continued need for 0.5LPM oxygen. Pt. conversive, cough improved but still present as it is baseline. Did room air trial with noted SpO2 89-92%. IS order placed. Pt. now states she has continued chest pain that feels different than before. Denies SOB. N/V or diaphoresis as well as radiation of symptoms. She does state discomfort improved with taking a deep breath. She did have bronchial lavage which may account for symptoms. She is in no distress and easily carries a conversation. Discussed with Dr. Tejada and EKG/Chest X-ray ordered with no acute findings. Pt. ambulated in DSU with SpO2 increased up to 96% with unchanged symptoms and she was discharged home. I did advise patient if any of this changes or worsens, she should not ignore it and return to ED or call 911, although i feel this is a very low risk. Pt. verbalized understanding of plan.
[2025-05-29 13:26] LABS: Eosinophils Fluid Relative 2 % ((See Note)); Lymphocytes Fluid Relative 38 % ((See Note)); Mono/Macrophage Fluid Relative 54 % ((See Note)); Neutrophils Fluid Relative 1 % ((See Note)); Other Cells Fluid Relative 5 % ((See Note))
[2025-05-30 00:34] LABS: Aspergillus Ag, BAL <0.500 index (<0.5)
[2025-05-30 00:34] LABS: Aspergillus Ag, BAL <0.500 index (<0.5)
== END 2025-05-28 16:10 | disposition home or self-care (01) ==
PROVIDERS: PCP Physician Assistant; Visit Provider Internal Medicine Pulmonary Disease
PROC: 0BJ08ZZ Inspection of Tracheobronchial Tree, Via Natural or Artificial Opening Endoscopic (ICD-10-PCS; CPT 31622; principal; 2025-05-28 11:15)
DX: R91.8 Other nonspecific abnormal finding of lung field (principal); R05.9 Cough, unspecified
CPT/HCPCS: 31624; 80162; 87070; 87102; 87116; 87205; 87206; 87305; 71045; 88104; 94640; J1100; J2003; J2004; J2371; J2405; J2704; J7613; J7620

== ENCOUNTER → 2025-06-13 14:19 | Outpatient (CLI) | payer MEDICARE, SELFPAY ==
--- NOTE | 2025-06-13 14:30 | DI.US_ITS ---
APPROVED REPORT EXAM: Comprehensive 2D, Doppler, and color-flow Echocardiogram Patient Location: Out-Patient Phone Counselor: Mandy Miranda RDCS (AE) Indications: Cough, HX valvular heart disease, Endocarditis Other Information Study Quality: Adequate Conclusion Normal left ventricular wall thickness and chamber size. Ejection fraction is 60%. Wall motion is normal Normal right ventricular size and function Both atria are normal in size Aortic valve is calcified and probably trileaflet. There is moderate to severe aortic stenosis. Peak gradient is 50, mean 35 mmHg. Calculated aortic valve area 0.7 cm??. There is mild aortic regurgitation Estimated right ventricular systolic pressure is 21 mmHg Mildly dilated ascending aorta 3.5 cm Wall motion Left Ventricle The left ventricle is normal size. The left ventricular systolic function is normal. The left ventricular ejection fraction is within the normal range. There is normal left ventricular wall thickness. There is normal LV segmental wall motion. There is no ventricular septal defect visualized. LVEF is 60%. Right Ventricle The right ventricle is normal size. The right ventricular systolic function is normal. Atria The left atrium size is normal. The right atrium size is normal. The interatrial septum is intact with no evidence for an atrial septal defect. Aortic Valve Aortic valve is calcified. Aortic valve is probably trileaflet Moderate to severe aortic stenosis. Highest mean aortic valve gradient is 35.86mmHg. Peak aortic valve gradient is 49.61_mmHg. Calculated ROSALINA by the continuity equation is .7cm2. Mild aortic regurgitation. Mitral Valve Mild mitral annular calcification. No evidence of mitral valve stenosis. Trace mitral regurgitation. Tricuspid Valve The tricuspid valve is normal in structure. There is no tricuspid valve stenosis. Trace tricuspid regurgitation. The RVSP is 20.9 mmHg. Pulmonic Valve The pulmonary valve is normal in structure. There is no pulmonic valvular stenosis. Trace pulmonic regurgitation. Great Vessels The aortic root is normal in size. The ascending aorta is mildly dilated. Aortic arch is normal in caliber. IVC is normal in size and collapses >50% with inspiration. Pericardium There is no pericardial effusion. 2D Dimensions IVSD d PLAX 1.02 cm F: 0.6-1.0 Ao Root d 2.99 cm F: 2.7 - 3.3 LVPW d PLAX 1.00 cm F: 0.6 - 1.0 Ao Asc Diam d 3.50 cm F: 2.3 - 3.1 LVID d PLAX 4.00 cm F: 3.8 - 5.2 LVDs 2.74 cm F: 2.2 - 3.5 LV EF Teichholz 59.5 % FS 31.14 % LV EDV (Teich) 69.2 mL LV ESV (Teich) 28.0 mL M-Mode TAPSE 2.08 cm (M/F) >1.7 Auto EF LV EDV A4C 125.8 mL LV EDV A2C 117.9 mL LV EDV BP 123.8 mL LV ESV A4C 53.5 mL LV ESV A2C 49.8 mL LV ESV BP 50.7 mL LVEF(%) A4C 57.5 % LVEF(%) A2C 57.8 % LVEF(%) BP 59.0 % LV SV A4C 72.4 ml LV SV A2C 68.1 ml LV SV BP 73.0 ml LV CO A4C 4.9 L/min LV CO A2C 4.9 L/min LV CO BP 4.9 L/min HR A4C 67.29 BPM HR A2C 71.86 BPM LV EDV Index (BP) LA Volume LA Length A4C 4.7 cm LA Length A2C 4.5 cm LA Area A4C s 19.52 cm2 LA Area A2C s 15.82 cm2 LA Vol A4C A-L 68.83 mL LA Vol A2C A-L 46.70 mL LA Vol Biplane A-L 57.6 mL LA Vol/BSA A4C A-L LA Vol/BSA A2C A-L LA Vol/BSA BP A-L 33.3 mL/m2 LA Vol A4C MOD 64.5 mL LA Vol A2C MOD 42.8 mL LA Vol BP MOD 53.3 mL RA Volume RA Area A4C 8.4 cm2 RA ESV A4C (A-L) 14.1mL RA Vol/BSA A4C A-L RA Length A4C 4.3 cm RA ESV A4C (MOD) 13.6mL LV Diastology MV E' medial 0.051 (>0.07 m/s) MV E Vmax 0.52 (0.4-1.3 m/s) MV E/E' MED 10.15 (<14) MV A Vmax 0.85 (0.4-1.3 m/s) MV E' lateral 0.071 (>0.1 m/s) E/A Ratio 0.6 MV E/E' LAT 7.23 (<14) MV E' Average 0.061 m/s MV E/E'(average) 8.44 Aortic Valve AoV Vmax 3.52 m/s LVOT Vmax 0.83 m/s AoV Peak Grad 58.8 mmHg LVOT Peak Grad 2.7 mmHg AoV Area (Vmax) 0.69 cm2 LVOT VTI 0.219 m AoV VTI 0.901 m LVOT Mean Grad 1.5 mmHg AoV Mean Omega. 2.92 m/s LVOT SV 64.21 mL AoV Mean Grad 35.9 mmHg LVOT Diam s 1.90 cm AoV Area (VTI) 0.71 cm2 AV Regurg Peak Gr. 49.61 mmHg Velocity Ratio 0.24 AR Decel Carbon 1.6m/sec2 AR DT 2545 msec AR PHT 738 msec AR Vmax 4.12 m/s Mitral Valve MV DT 313 (160-240 msec) MV Vmax TIPS 0.94 m/s MV Mean Grad 1.4 (<2mmHg) MV PHT 96 msec MV Area PHT 2.30 cm2 MV VTI 0.232 m Pulmonary Valve PV Vmax 1.06 (0.5-1.5 m/s) RVOT Vmax 0.68 m/s PV Peak Grad 4.5 mmHg RVOT Peak Gr. 1.8 mmHg PV Mean Omega 0.68 m/s RVOT VTI 0.145 m PV Mean Grad 2.2 mmHg RVOT Mean Gr. 1.0 mmHg Tricuspid Valve RA Pressure 3.00 mmHg TR Vmax 2.12 m/s TV S' 0.13 m/s TR Peak Grad 17.9 mmHg RVSP (TR) 20.9 mmHg
== END ==
LOC: DI 14:19
PROVIDERS: PCP Physician Assistant; Visit Provider Internal Medicine Pulmonary Disease
DX: I38 Endocarditis, valve unspecified (principal); R05.9 Cough, unspecified; I35.0 Nonrheumatic aortic (valve) stenosis
CPT/HCPCS: 93306